=== PATIENT | male | born 1940 | race Caucasian/White ===

== ENCOUNTER 2017-05-14 09:42 | Inpatient (IN) | payer MEDICARE ==
[2017-05-14 10:03] LABS: #Eosinphils 0.1 thou/uL (0.0-0.7); #Lymphocytes 2.8 thou/uL (1.20-3.40); #Monocytes 0.7 thou/uL (0.11-0.59); #Neutrophils 7.5 thou/uL (1.40-6.50); %Basophils 0.3 % (0.0-1.0); %Eosinophils 0.9 % (0.0-10.0); %Lymphocytes 25.2 % (21.0-51.0); %Monocytes 6.5 % (0.0-10.0); %Neutrophils 67.2 % (42.0-75.0); Hemoglobin 13.8 g/dL (14.0-18.0); Mean Corpuscular HGB CONC 33.2 g/dL (32.0-36.0); Mean Corpuscular Hemoglobin 31.7 pg (27.0-31.0); Mean Corpuscular Volume 95.4 fl (80.0-94.0); Mean Platelet Volume 7.4 fL (7.4-10.4); Platelet Count 202 thou/uL (130-400); RBC Distribution Width 12.3 % (11.5-14.5); Red Blood Cell (RBC) Count 4.35 mill/uL (4.70-6.10); White Blood Cell (WBC) Count 11.2 thou/uL (4.8-10.8)
[2017-05-14 10:07] LABS: INR-International Normal Ratio 1.1; PTT 32.8 SEC (22.9-36.1); Prothrombin Time 13.8 SEC (12.0-14.7)
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
[2017-05-14 10:13] LABS: Bilirubin Negative (Negative); Blood, Urine Moderate (Negative); Clarity CLEAR (Clear); Glucose, Urine (Dipstick) >=1000 mg/dL (Negative); Leukocyte Negative (Negative); Nitrite Negative (Negative); Protein, Urine (Dipstick) Negative (Neg-Trace); Specific Gravity, Urine 1.018 (1.002-1.036); Urobilinogen 0.2 mg/dL (0.2-1.0)
[2017-05-14 10:16] LABS: Bacteria/HPF None Seen HPF (None Seen); Hyaline Casts/LPF 0-3 HYALINE CAST LPF (0-3 Hyaline); Pathc Cast-AUWi Flag 0.13 (0-2.49); RBC/HPF 0-3 HPF (0-3); Squamous Epithelial None Seen HPF (0-3); WBC/HPF None Seen HPF (0-3)
[2017-05-14 10:25] LABS: ALT (SGPT) 22 U/L (8-55); AST (SGOT) 33 U/L (5-34); Alkaline Phosphatase 85 U/L (40-150); Anion Gap 15 mmol/L (10-20); BUN (Urea Nitrogen) 30 mg/dL (8.4-25.7); Bilirubin, Total 0.3 mg/dL (0.2-1.2); Calc. Creatinine Clearance 0 mL/min (70-130); Calcium 8.5 mg/dL (7.8-10.44); Carbon Dioxide 19 mmol/L (23-31); Chloride 104 mmol/L (98-107); Estimated GFR-MDRD 33; Globulin 4.5 g/dL (2.4-3.5); Glucose 396 mg/dL (83-110); Lipase 98 U/L (8-78); Potassium 5.2 mmol/L (3.5-5.1); Protein, Total 8.5 g/dL (5.8-8.1); Sodium 133 mmol/L (136-145)
[2017-05-14 10:30] LABS: Troponin I 0.026 ng/mL (< 0.028)
[2017-05-14 10:41] LABS: CKMB 12.3 ng/mL (0-6.6)
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
[2017-05-14] MEDS ORDERED: Bacitracin Zinc 1 Packet ONE (10:55)
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
[2017-05-14] MEDS ORDERED: Insulin Regular 300 UNITS/3 ML VIAL ONE (11:25)
[2017-05-14] MEDS ORDERED: Bisacodyl 5 MG TAB PO PRN (11:43)
[2017-05-14] MEDS ORDERED: Dextrose 5% in Water 1,000 ML IV PRN (11:43)
[2017-05-14] MEDS ORDERED: Acetaminophen 650 MG Suppository PR PRN (11:43)
[2017-05-14] MEDS ORDERED: Dextrose 50% Abboject 50 ML SYRINGE SLOW IVP PRN (11:43)
[2017-05-14 12:02] LABS: Actual Bicarbonate (HCO3a) 21.8 mEq/L (22-26); Base Excess (BEa) -4.1 mEq/L (0 (+/-) 2.5); CO2 Tension 42.7 mmHg (35.0-45.0); Hematocrit-ABG 38.7 % (42.0-52.0); Hemoglobin (Hb) 12.4 g/dL (14.0-18.0); O2 Tension (PaO2) 72.7 mmHg (80.0-100.0); pH, Arterial 7.33 (7.35-7.45)
[2017-05-14 12:03] LABS: ALV-art Gradient 23.655 (0-20); Analyzer IN Cardio ER; Calcium, Ionized 1.2 mmol/L (1.12-1.30); Puncture Site RRA
[2017-05-14] MEDS ORDERED: ISOVUE-370 76%-LOCM 1 ML ONE (12:42)
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
[2017-05-14 13:15] LABS: Acetaminophen Less than 6.0 mcg/mL (10.0-30.0); Alcohol Less than 10 mg/dL (Less than 10); Salicylate Less than 8.0 mg/dL (15.0-30.0)
[2017-05-14] MEDS ORDERED: Acetaminophen 500 MG TAB ONE (13:46)
[2017-05-14 14:09] LABS: Troponin I 0.043 ng/mL (< 0.028)
[2017-05-14 16:19] VITALS: BMI 29.0
[2017-05-14] MEDS: Sodium Chloride 0.9% 1,000 ML IV SCH (16:51)
[2017-05-14 17:08] LABS: Troponin I 0.049 ng/mL (< 0.028)
[2017-05-14 17:09] LABS: Amphetamine Not Detected (NotDetected); Barbiturates Screen Not Detected (NotDetected); Benzodiazepine Screen Not Detected (NotDetected); Cocaine Metabolite Screen Not Detected (NotDetected); Medtox Control Line Valid? VALID (VALID); Medtox Reader # READER 1; Methadone Not Detected (NotDetected); Methamphetamine Not Detected (NotDetected); Opiate Screen Not Detected (NotDetected); Oxycodone Screen Not Detected (NotDetected); Phencyclidine (PCP) Not Detected (NotDetected); THC/Cannabinoid Screen Not Detected (NotDetected); Tricyclic Screen Not Detected (NotDetected)
[2017-05-14] MEDS: traMADol HCl 50 MG TAB PO PRN (19:14)
[2017-05-15] MEDS: traMADol HCl 50 MG TAB PO PRN ×2 (01:53→20:12)
[2017-05-15 05:31] LABS: #Eosinphils 0.1 thou/uL (0.0-0.7); #Lymphocytes 2.2 thou/uL (1.20-3.40); #Neutrophils 8.1 thou/uL (1.40-6.50); %Basophils 0.1 % (0.0-1.0); %Eosinophils 0.5 % (0.0-10.0); %Lymphocytes 19.5 % (21.0-51.0); %Monocytes 8.7 % (0.0-10.0); %Neutrophils 71.3 % (42.0-75.0); Hemoglobin 11.8 g/dL (14.0-18.0); Mean Corpuscular HGB CONC 33.6 g/dL (32.0-36.0); Mean Corpuscular Hemoglobin 31.9 pg (27.0-31.0); Mean Corpuscular Volume 94.9 fl (80.0-94.0); Mean Platelet Volume 7.3 fL (7.4-10.4); Platelet Count 181 thou/uL (130-400); RBC Distribution Width 12.3 % (11.5-14.5); Red Blood Cell (RBC) Count 3.72 mill/uL (4.70-6.10); White Blood Cell (WBC) Count 11.4 thou/uL (4.8-10.8)
[2017-05-15 05:54] LABS: Anion Gap 12 mmol/L (10-20); BUN (Urea Nitrogen) 21 mg/dL (8.4-25.7); CK (CPK) 1265 U/L (30-200); Calc. Creatinine Clearance 58 mL/min (70-130); Calcium 8.1 mg/dL (7.8-10.44); Carbon Dioxide 20 mmol/L (23-31); Chloride 109 mmol/L (98-107); Estimated GFR-MDRD 48; Glucose 210 mg/dL (83-110); Potassium 4.3 mmol/L (3.5-5.1); Sodium 137 mmol/L (136-145)
[2017-05-15] MEDS: Sodium Chloride 0.9% 1,000 ML IV SCH ×2 (05:56→16:39)
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
[2017-05-15] MEDS: HumaLOG 300 UNITS/3 ML VIAL SC PRN ×2 (09:19→18:08)
--- NOTE | 2017-05-15 13:16 | PDOC.PN ---
- Subjective Encounter Start Date: 05/15/17 Encounter Start Time: 07:00 Pt seen for followup re: syncope. Denies chest pain. R shoulder pain better. - Objective Resuscitation Status: Resuscitation Status FULL:Full Resuscitation MAR Reviewed: Yes Vital Signs & Weight: Vital Signs (12 hours) Temp Pulse Resp BP BP Pulse Ox 05/15/17 11:18 97.4 F L 60 16 150/67 H 97 05/15/17 08:45 97.2 F L 77 18 165/74 H 97 05/15/17 04:00 98.5 F 78 18 176/81 H 94 L Weight Weight 206 lb 9.6 oz I&O: 05/14/17 05/15/17 05/16/17 06:59 06:59 06:59 Intake Total 898 Output Total 850 Balance 48 Result Diagrams: 05/15/17 05:07 05/15/17 05:07 Additional Labs: Accuchecks 05/15/17 05/15/17 05/14/17 11:38 05:59 20:10 POC Glucose 170 H 206 H 142 H 05/14/17 05/14/17 17:08 14:53 POC Glucose 114 H 110 EKG Reviewed by me: Yes (Tele: NSR) Phys Exam - Physical Examination Constitutional: NAD L eyelid swelling Neck: no nodes, no JVD, supple, full ROM Respiratory: no wheezing, no rales, no rhonchi, clear to auscultation bilateral Cardiovascular: RRR, no rub Gastrointestinal: soft, non-tender, no distention, positive bowel sounds Musculoskeletal: pulses present Neurological: moves all 4 limbs Psychiatric: normal affect, A&O x 3 Skin: no rash Dx/Plan (1) Syncope Code(s): R55 - SYNCOPE AND COLLAPSE Status: Acute (2) Rhabdomyolysis Code(s): M62.82 - RHABDOMYOLYSIS Status: Acute (3) JUD (acute kidney injury) Code(s): N17.9 - ACUTE KIDNEY FAILURE, UNSPECIFIED Status: Acute (4) BPH (benign prostatic hyperplasia) Code(s): N40.0 - BENIGN PROSTATIC HYPERPLASIA WITHOUT LOWER URINRY TRACT SYMP Status: Chronic (5) DM2 (diabetes mellitus, type 2) Status: Chronic (6) HTN (hypertension) Code(s): I10 - ESSENTIAL (PRIMARY) HYPERTENSION Status: Chronic - Plan PT/OT, out of bed/ambulate, DVT proph w/SCDs * . Creatinine improving, CK worse. Continue IV fluids. Await 2D echo, cardiology consult. Continue home medications for BPH. Continue accuchecks, insulin sliding scale. Review of Systems - Review of Systems Constitutional: negative: fever, chills, sweats, weakness, malaise Respiratory: negative: Cough, Dry, Shortness of Breath, Hemoptysis, SOB with Excertion, Pleuritic Pain, Sputum, Wheezing Cardiovascular: negative: chest pain, palpitations, orthopnea, paroxysmal nocturnal dyspnea, edema, light headedness Gastrointestinal: negative: Nausea, Vomiting, Abdominal Pain, Diarrhea, Constipation, Melena, Hematochezia Genitourinary: negative: Dysuria, Frequency, Incontinence, Hematuria, Retention - Medications/Allergies Allergies/Adverse Reactions: Allergies Allergy/AdvReac Type Severity Reaction Status Date / Time No Known Drug Allergies Allergy Verified 05/14/17 11:43 Medications: Current Medications Acetaminophen (Tylenol) 650 mg PO Q4H PRN PRN Reason: Headache/Fever or Pain Acetaminophen (Tylenol) 650 mg VT Q4H PRN PRN Reason: Headache/Fever or Pain Bisacodyl (Dulcolax) 10 mg PO DAILYPRN PRN PRN Reason: Constipation Dextrose/Water (Dextrose 50%) 25 gm SLOW IVP PRN PRN PRN Reason: Hypoglycemia Finasteride (Proscar) 5 mg PO DAILY [facility] Glucagon (Glucagon) 1 mg IM PRN PRN PRN Reason: Hypoglycemia Hydralazine HCl (Apresoline) 10 mg SLOW IVP Q6H PRN PRN Reason: SBP Greater Than 170 Dextrose/Water (D5w) 1,000 mls @ 0 mls/hr IV .Q0M PRN; As Directed PRN Reason: Hypoglycemia Sodium Chloride (Normal Saline 0.9%) 1,000 mls @ 75 mls/hr IV .[id number] [facility] Last Admin: 05/15/17 05:56 Dose: 1,000 mls Insulin Human Isoph/Insulin Regular (Humulin 70/30) 46 units SC DAILY [facility] Insulin Human Lispro (Humalog) 0 units SC .MILD SLIDING SCALE PRN PRN Reason: Mild Correctional Scale Last Admin: 05/15/17 09:19 Dose: 3 units Lisinopril (Zestril) 5 mg PO DAILY [facility] Pravastatin Sodium (Pravachol) 40 mg PO HS [facility] Spironolactone (Aldactone) 25 mg PO DAILY [facility] Tamsulosin HCl (Flomax) 0.4 mg PO DAILY [facility] Tramadol HCl (Ultram) 50 mg PO Q6H PRN PRN Reason: Pain Last Admin: 05/15/17 01:53 Dose: 50 mg
[2017-05-15] MEDS ORDERED: Lidocaine 1% w/Epinephrine 1:200K 30 ML VIAL ONE (13:43)
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
--- NOTE | 2017-05-15 16:30 | CCL ---
PROCEDURE NOTE: Date: 05/15/17 PROCEDURE PERFORMED: Insertable personal care home administrator implant. IMPLANTING PHYSICIAN: Guy Saravia M.D. INDICATION FOR DEVICE: Syncope. PROCEDURE: Insertion of permanent personal care home administrator, model MVP LINQ 11, serial #[id number]. COMPLICATIONS: None. DESCRIPTION OF PROCEDURE: The patient was taken to the cardiac laborer egg producing farm, prepped and draped in the usual sterile fashion. Lidoc verena was utilized for local anesthesia. An incision was made at the fourth intercostal space in the l eft pectoral region with skin puncture tool. The insertable personal care home administrator was inserted through the puncture site with the LINQ insertion tool. Dermabond was then applied to side in the usual sterile f ashion. RECOMMENDATIONS: 1. Continue monitoring. 2. Follow up in the office in 1 week for wound check.
[2017-05-15] MEDS: Atorvastatin Calcium 10 MG TAB PO SCH (20:12)
[2017-05-15] MEDS ORDERED: Pravastatin Sodium 40 MG TAB PO SCH (21:00)
[2017-05-16] MEDS: traMADol HCl 50 MG TAB PO PRN ×3 (02:09→17:29)
[2017-05-16] MEDS: hydrALAZINE 20 MG/ML VIAL SLOW IVP PRN (04:20)
[2017-05-16 05:07] LABS: #Eosinphils 0.1 thou/uL (0.0-0.7); #Monocytes 0.9 thou/uL (0.11-0.59); #Neutrophils 8.3 thou/uL (1.40-6.50); %Basophils 0.2 % (0.0-1.0); %Eosinophils 0.7 % (0.0-10.0); %Lymphocytes 17.7 % (21.0-51.0); %Monocytes 7.6 % (0.0-10.0); %Neutrophils 73.8 % (42.0-75.0); Hemoglobin 11.8 g/dL (14.0-18.0); Mean Corpuscular Hemoglobin 31.6 pg (27.0-31.0); Mean Corpuscular Volume 95.6 fl (80.0-94.0); Mean Platelet Volume 7.4 fL (7.4-10.4); Platelet Count 180 thou/uL (130-400); RBC Distribution Width 12.4 % (11.5-14.5); Red Blood Cell (RBC) Count 3.74 mill/uL (4.70-6.10); White Blood Cell (WBC) Count 11.3 thou/uL (4.8-10.8)
[2017-05-16 05:41] LABS: Anion Gap 11 mmol/L (10-20); BUN (Urea Nitrogen) 19 mg/dL (8.4-25.7); CK (CPK) 768 U/L (30-200); Calc. Creatinine Clearance 54 mL/min (70-130); Calcium 8.1 mg/dL (7.8-10.44); Carbon Dioxide 22 mmol/L (23-31); Chloride 109 mmol/L (98-107); Estimated GFR-MDRD 43; Glucose 241 mg/dL (83-110); Potassium 4.8 mmol/L (3.5-5.1); Sodium 137 mmol/L (136-145)
[2017-05-16] MEDS: Spironolactone 25 MG TAB PO SCH (08:54)
[2017-05-16] MEDS: Tamsulosin HCl 0.4 MG CAP PO SCH (08:54)
[2017-05-16] MEDS: Lisinopril 5 MG TAB PO SCH (08:54)
[2017-05-16] MEDS: Finasteride 5 MG TAB PO SCH (08:54)
[2017-05-16] MEDS ORDERED: Insulin NPH/Reg Insulin Hm 300 UNITS/3 ML VIAL SC SCH (09:00)
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
--- NOTE | 2017-05-16 13:21 | PDOC.PN ---
- Subjective Encounter Start Date: 05/16/17 Encounter Start Time: 07:40 Pt seen for followup re; syncope. No chest pain or shortness of breath. - Objective Resuscitation Status: Resuscitation Status FULL:Full Resuscitation MAR Reviewed: Yes Vital Signs & Weight: Vital Signs (12 hours) Temp Pulse Resp BP BP Pulse Ox 05/16/17 11:58 98.2 F 82 20 178/74 H 94 L 05/16/17 08:54 80 05/16/17 08:50 97.4 F L 80 18 95 05/16/17 08:49 97.4 F L 80 18 182/81 H 95 05/16/17 05:32 95 05/16/17 04:20 77 185/82 H 05/16/17 04:00 97.7 F 77 18 185/82 H 95 Weight Weight 209 lb 3.2 oz I&O: 05/15/17 05/16/17 05/17/17 06:59 06:59 06:59 Intake Total 898 1584 Output Total 850 1700 450 Balance 48 -116 -450 Result Diagrams: 05/17/17 05:39 05/17/17 05:39 Additional Labs: Accuchecks 05/16/17 05/16/17 05/15/17 10:55 05:58 20:12 POC Glucose 285 H 266 H 191 H 05/15/17 05/15/17 17:34 13:49 POC Glucose 209 H 328 H EKG Reviewed by me: Yes (Tele: NSR) Phys Exam - Physical Examination Constitutional: NAD L orbital swellign improved, pt's vision preserved. Neck: no JVD Respiratory: clear to auscultation bilateral Cardiovascular: RRR Gastrointestinal: soft Musculoskeletal: pulses present Neurological: moves all 4 limbs Psychiatric: normal affect Skin: no rash Dx/Plan (1) Syncope Code(s): R55 - SYNCOPE AND COLLAPSE Status: Acute (2) Rhabdomyolysis Code(s): M62.82 - RHABDOMYOLYSIS Status: Acute (3) JUD (acute kidney injury) Code(s): N17.9 - ACUTE KIDNEY FAILURE, UNSPECIFIED Status: Acute (4) BPH (benign prostatic hyperplasia) Code(s): N40.0 - BENIGN PROSTATIC HYPERPLASIA WITHOUT LOWER URINRY TRACT SYMP Status: Chronic (5) DM2 (diabetes mellitus, type 2) Status: Chronic (6) HTN (hypertension) Code(s): I10 - ESSENTIAL (PRIMARY) HYPERTENSION Status: Chronic - Plan * . Creatinine slightly worse today, continue IV fluids. CK level improved. Pt going for stress test today. Advised pt not to drive or use heavy machinery. Ambulate patient. Review of Systems - Review of Systems Respiratory: negative: Cough, Dry, Shortness of Breath, Hemoptysis, SOB with Excertion, Pleuritic Pain, Sputum, Wheezing Cardiovascular: negative: chest pain, palpitations, orthopnea, paroxysmal nocturnal dyspnea, edema, light headedness - Medications/Allergies Allergies/Adverse Reactions: Allergies Allergy/AdvReac Type Severity Reaction Status Date / Time No Known Drug Allergies Allergy Verified 05/14/17 11:43 Medications: Current Medications Acetaminophen (Tylenol) 650 mg PO Q4H PRN PRN Reason: Headache/Fever or Pain Acetaminophen (Tylenol) [address] Q4H PRN PRN Reason: Headache/Fever or Pain Atorvastatin Calcium (Lipitor) 10 mg PO HS [facility] Last Admin: 05/15/17 20:12 Dose: 10 mg Bisacodyl (Dulcolax) 10 mg PO DAILYPRN PRN PRN Reason: Constipation Dextrose/Water (Dextrose 50%) 25 gm SLOW IVP PRN PRN PRN Reason: Hypoglycemia Finasteride (Proscar) 5 mg PO DAILY [facility] Last Admin: 05/16/17 08:54 Dose: 5 mg Glucagon (Glucagon) 1 mg IM PRN PRN PRN Reason: Hypoglycemia Hydralazine HCl (Apresoline) 10 mg SLOW IVP Q6H PRN PRN Reason: SBP Greater Than 170 Last Admin: 05/16/17 04:20 Dose: 10 mg Dextrose/Water (D5w) 1,000 mls @ 0 mls/hr IV .Q0M PRN; As Directed PRN Reason: Hypoglycemia Insulin Human Lispro (Humalog) 0 units SC .MILD SLIDING SCALE PRN PRN Reason: Mild Correctional Scale Last Admin: 05/15/17 18:08 Dose: 3 units Lisinopril (Zestril) 5 mg PO DAILY [facility] Last Admin: 05/16/17 08:54 Dose: 5 mg Sodium Chloride (Flush - Normal Saline) 10 ml IVF Q12HR [facility] Last Admin: 05/16/17 08:56 Dose: 10 ml Sodium Chloride (Flush - Normal Saline) 10 ml IVF PRN PRN PRN Reason: Saline Flush Spironolactone (Aldactone) 25 mg PO DAILY [facility] Last Admin: 05/16/17 08:54 Dose: 25 mg Tamsulosin HCl (Flomax) 0.4 mg PO DAILY [facility] Last Admin: 05/16/17 08:54 Dose: 0.4 mg Tramadol HCl (Ultram) 50 mg PO Q6H PRN PRN Reason: Pain Last Admin: 05/16/17 09:03 Dose: 50 mg
[2017-05-16] MEDS ORDERED: Regadenoson 0.4 MG/5 ML SYRINGE ONE (13:46)
[2017-05-16] MEDS: HumaLOG 300 UNITS/3 ML VIAL SC PRN (18:27)
--- NOTE | 2017-05-16 20:04 | NM ---
NUCLEAR MEDICINE CARDIAC PERFUSION EXAMINATION 05/16/17 HISTORY: 77-year-old male with syncope. History of prior cardiac catheterization, hypertension, diabetes, and dyslipidemia. TECHNIQUE: A single day nuclear medicine cardiac perfusion examination was performed. The rest images were obtai claudette using 9.2 millicuries technetium 99m Sestamibi. Stress images were obtained using 30 millicuries of technetium 99m Sestamibi and Lexiscan. FINDINGS: There is a large fixed perfusion defect of the lateral wall. No reversible perfusion defects are seen . Gated images show lateral hypokinesis with an ejection fracture of 47%. EDV is 147 mL. LHR is 0.6. TID is 1.0. IMPRESSION: 1. No evidence of ischemia. 2. 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 3. Lateral hypokinesis with an ejection fraction of 47%. POS: OBDULIO
[2017-05-16] MEDS: Atorvastatin Calcium 10 MG TAB PO SCH (20:39)
[2017-05-17] MEDS: traMADol HCl 50 MG TAB PO PRN ×4 (00:01→21:09)
[2017-05-17 06:21] LABS: #Lymphocytes 1.5 thou/uL (1.20-3.40); #Monocytes 0.9 thou/uL (0.11-0.59); #Neutrophils 9.3 thou/uL (1.40-6.50); %Basophils 0.1 % (0.0-1.0); %Eosinophils 0.3 % (0.0-10.0); %Lymphocytes 13.1 % (21.0-51.0); %Monocytes 7.6 % (0.0-10.0); %Neutrophils 78.9 % (42.0-75.0); Hemoglobin 12.2 g/dL (14.0-18.0); Mean Corpuscular HGB CONC 33.6 g/dL (32.0-36.0); Mean Corpuscular Volume 95.1 fl (80.0-94.0); Mean Platelet Volume 7.6 fL (7.4-10.4); Platelet Count 166 thou/uL (130-400); RBC Distribution Width 12.2 % (11.5-14.5); Red Blood Cell (RBC) Count 3.81 mill/uL (4.70-6.10); White Blood Cell (WBC) Count 11.7 thou/uL (4.8-10.8)
[2017-05-17 06:41] LABS: Anion Gap 14 mmol/L (10-20); BUN (Urea Nitrogen) 21 mg/dL (8.4-25.7); Calc. Creatinine Clearance 57 mL/min (70-130); Calcium 8.6 mg/dL (7.8-10.44); Carbon Dioxide 17 mmol/L (23-31); Chloride 108 mmol/L (98-107); Estimated GFR-MDRD 48; Glucose 250 mg/dL (83-110); Potassium 4.5 mmol/L (3.5-5.1); Sodium 134 mmol/L (136-145)
[2017-05-17] MEDS: Tamsulosin HCl 0.4 MG CAP PO SCH (08:39)
[2017-05-17] MEDS: Spironolactone 25 MG TAB PO SCH (08:39)
[2017-05-17] MEDS: Lisinopril 5 MG TAB PO SCH (08:39)
[2017-05-17] MEDS: Finasteride 5 MG TAB PO SCH (08:39)
[2017-05-17] MEDS: HumaLOG 300 UNITS/3 ML VIAL SC PRN ×2 (08:41→12:10)
[2017-05-17] MEDS ORDERED: Communication Order-Pharmacy FS SCH (09:45)
[2017-05-17] MEDS: Insulin NPH/Reg Insulin Hm 300 UNITS/3 ML VIAL SC SCH (12:11)
--- NOTE | 2017-05-17 16:12 | PDOC.PN ---
- Subjective Encounter Start Date: 05/17/17 Encounter Start Time: 08:00 Pt seen for followup re: syncope. No recurrence of syncope. No chest pain or shortness of breath. - Objective Resuscitation Status: Resuscitation Status FULL:Full Resuscitation MAR Reviewed: Yes Vital Signs & Weight: Vital Signs (12 hours) Temp Pulse Resp BP BP Pulse Ox 05/17/17 11:37 97.9 F 85 18 145/67 H 93 L 05/17/17 08:39 76 05/17/17 08:30 98 F 84 18 133/61 94 L Weight Weight 202 lb 14.4 oz I&O: 05/16/17 05/17/17 05/18/17 06:59 06:59 06:59 Intake Total 1584 480 480 Output Total 1700 1075 Balance -116 -595 480 Result Diagrams: 05/17/17 05:39 05/17/17 05:39 Additional Labs: Accuchecks 05/17/17 05/16/17 05/16/17 05:20 20:22 16:09 POC Glucose 285 H 280 H 256 H EKG Reviewed by me: Yes (Tele: NSR) Phys Exam - Physical Examination Constitutional: NAD HEENT: moist MMs Neck: supple Respiratory: clear to auscultation bilateral Cardiovascular: RRR Gastrointestinal: soft Neurological: moves all 4 limbs Psychiatric: normal affect Deviation from normal: Orbital bruise improving Dx/Plan (1) Syncope Code(s): R55 - SYNCOPE AND COLLAPSE Status: Acute (2) Rhabdomyolysis Code(s): M62.82 - RHABDOMYOLYSIS Status: Acute (3) JUD (acute kidney injury) Code(s): N17.9 - ACUTE KIDNEY FAILURE, UNSPECIFIED Status: Acute (4) BPH (benign prostatic hyperplasia) Code(s): N40.0 - BENIGN PROSTATIC HYPERPLASIA WITHOUT LOWER URINRY TRACT SYMP Status: Chronic (5) DM2 (diabetes mellitus, type 2) Status: Chronic (6) HTN (hypertension) Code(s): I10 - ESSENTIAL (PRIMARY) HYPERTENSION Status: Chronic - Plan * . Discussed with cardiology service, plan for cath on Friday noted. Review of Systems - Review of Systems Respiratory: negative: Cough, Dry, Shortness of Breath, Hemoptysis, SOB with Excertion, Pleuritic Pain, Sputum, Wheezing Cardiovascular: negative: chest pain, palpitations, orthopnea, paroxysmal nocturnal dyspnea, edema, light headedness - Medications/Allergies Allergies/Adverse Reactions: Allergies Allergy/AdvReac Type Severity Reaction Status Date / Time No Known Drug Allergies Allergy Verified 05/14/17 11:43 Medications: Current Medications Acetaminophen (Tylenol) 650 mg PO Q4H PRN PRN Reason: Headache/Fever or Pain Acetaminophen (Tylenol) 650 mg [place] Q4H PRN PRN Reason: Headache/Fever or Pain Atorvastatin Calcium (Lipitor) 10 mg PO HS [facility] Last Admin: 05/16/17 20:39 Dose: 10 mg Bisacodyl (Dulcolax) 10 mg PO DAILYPRN PRN PRN Reason: Constipation Dextrose/Water (Dextrose 50%) 25 gm SLOW IVP PRN PRN PRN Reason: Hypoglycemia Finasteride (Proscar) 5 mg PO DAILY [facility] Last Admin: 05/17/17 08:39 Dose: 5 mg Glucagon (Glucagon) 1 mg IM PRN PRN PRN Reason: Hypoglycemia Hydralazine HCl (Apresoline) 10 mg SLOW IVP Q6H PRN PRN Reason: SBP Greater Than 170 Last Admin: 05/16/17 04:20 Dose: 10 mg Dextrose/Water (D5w) 1,000 mls @ 0 mls/hr IV .Q0M PRN; As Directed PRN Reason: Hypoglycemia Sodium Chloride (Normal Saline 0.9%) 1,000 mls @ 75 mls/hr IV .[id number] [facility] Insulin Human Isoph/Insulin Regular (Humulin 70/30) 20 units SC DAILY [facility] Last Admin: 05/17/17 12:11 Dose: 20 unit Insulin Human Lispro (Humalog) 0 units SC .MILD SLIDING SCALE PRN PRN Reason: Mild Correctional Scale Last Admin: 05/17/17 12:10 Dose: 4 units Lisinopril (Zestril) 5 mg PO DAILY [facility] Last Admin: 05/17/17 08:39 Dose: 5 mg Miscellaneous Information (Communication Order-Pharmacy) 0 each FS ONE [facility] Stop: 05/19/17 23:59 Sodium Chloride (Flush - Normal Saline) 10 ml IVF Q12HR [facility] Last Admin: 05/17/17 08:40 Dose: 10 ml Sodium Chloride (Flush - Normal Saline) 10 ml IVF PRN PRN PRN Reason: Saline Flush Spironolactone (Aldactone) 25 mg PO DAILY [facility] Last Admin: 05/17/17 08:39 Dose: 25 mg Tamsulosin HCl (Flomax) 0.4 mg PO DAILY [facility] Last Admin: 05/17/17 08:39 Dose: 0.4 mg Tramadol HCl (Ultram) 50 mg PO Q6H PRN PRN Reason: Pain Last Admin: 05/17/17 15:00 Dose: 50 mg
[2017-05-17] MEDS: Atorvastatin Calcium 10 MG TAB PO SCH (21:09)
[2017-05-18] MEDS: traMADol HCl 50 MG TAB PO PRN ×4 (03:01→22:30)
[2017-05-18 06:53] LABS: ALT (SGPT) 20 U/L (8-55); AST (SGOT) 22 U/L (5-34); Albumin 3.5 g/dL (3.4-4.8); Alkaline Phosphatase 76 U/L (40-150); Anion Gap 18 mmol/L (10-20); BUN (Urea Nitrogen) 33 mg/dL (8.4-25.7); Bilirubin, Total 1.1 mg/dL (0.2-1.2); Calc. Creatinine Clearance 28 mL/min (70-130); Calcium 8.8 mg/dL (7.8-10.44); Carbon Dioxide 16 mmol/L (23-31); Chloride 107 mmol/L (98-107); Estimated GFR-MDRD 21; Globulin 3.8 g/dL (2.4-3.5); Glucose 190 mg/dL (83-110); Protein, Total 7.3 g/dL (5.8-8.1); Sodium 135 mmol/L (136-145)
[2017-05-18] MEDS: Lisinopril 5 MG TAB PO SCH (08:59)
[2017-05-18] MEDS: Spironolactone 25 MG TAB PO SCH (09:00)
[2017-05-18] MEDS: Tamsulosin HCl 0.4 MG CAP PO SCH (09:18)
[2017-05-18] MEDS: Finasteride 5 MG TAB PO SCH (09:21)
[2017-05-18] MEDS: HumaLOG 300 UNITS/3 ML VIAL SC PRN ×2 (09:22→12:30)
[2017-05-18] MEDS: Insulin NPH/Reg Insulin Hm 300 UNITS/3 ML VIAL SC SCH (09:25)
[2017-05-18] MEDS ORDERED: Sodium Chloride 0.9% 1,000 ML IV SCH ×2 (09:45→10:45)
--- NOTE | 2017-05-18 10:21 | PDOC.PN ---
- Subjective Encounter Start Date: 05/18/17 Encounter Start Time: 08:00 Pt seen for followup re: JUD. No chest pain, shortness of breath, fevers or chills. - Objective Resuscitation Status: Resuscitation Status FULL:Full Resuscitation MAR Reviewed: Yes Vital Signs & Weight: Vital Signs (12 hours) Temp Pulse Resp BP BP BP Pulse Ox 05/18/17 08:59 84 05/18/17 08:00 97.7 F 85 18 160/66 H 95 05/18/17 04:40 92 L 05/18/17 03:55 98.1 F 84 18 113/54 L 92 L 05/18/17 00:58 93 L 05/18/17 00:00 97.7 F 79 14 142/65 H 93 L Weight Weight 203 lb 3.2 oz I&O: 05/17/17 05/18/17 05/19/17 06:59 06:59 06:59 Intake Total 480 720 Output Total 1075 100 Balance -595 620 Result Diagrams: 05/17/17 05:39 05/18/17 04:57 Additional Labs: Accuchecks 05/18/17 05/17/17 05/17/17 05:43 19:44 16:54 POC Glucose 182 H 112 H 139 H 05/17/17 11:36 POC Glucose 295 H EKG Reviewed by me: Yes (Tele: NSR) Phys Exam - Physical Examination Constitutional: NAD HEENT: moist MMs Neck: supple Respiratory: clear to auscultation bilateral Cardiovascular: RRR Gastrointestinal: soft Neurological: moves all 4 limbs Psychiatric: normal affect Dx/Plan (1) JUD (acute kidney injury) Code(s): N17.9 - ACUTE KIDNEY FAILURE, UNSPECIFIED Status: Acute (2) Syncope Code(s): R55 - SYNCOPE AND COLLAPSE Status: Acute (3) Rhabdomyolysis Code(s): M62.82 - RHABDOMYOLYSIS Status: Acute (4) BPH (benign prostatic hyperplasia) Code(s): N40.0 - BENIGN PROSTATIC HYPERPLASIA WITHOUT LOWER URINRY TRACT SYMP Status: Chronic (5) DM2 (diabetes mellitus, type 2) Status: Chronic (6) HTN (hypertension) Code(s): I10 - ESSENTIAL (PRIMARY) HYPERTENSION Status: Chronic - Plan * . JUD ? secondary to prerenal vs renal vs postrenal causes (CK was trending down) . Pt had a drop in blood pressure yesterday. Hold nephrotoxic medications. Check renal US. Hydrate patient, recheck Chem-7. Plan for cath tomorrow. Review of Systems - Review of Systems Respiratory: negative: Cough, Dry, Shortness of Breath, Hemoptysis, SOB with Excertion, Pleuritic Pain, Sputum, Wheezing Cardiovascular: negative: chest pain, palpitations, orthopnea, paroxysmal nocturnal dyspnea, edema, light headedness - Medications/Allergies Allergies/Adverse Reactions: Allergies Allergy/AdvReac Type Severity Reaction Status Date / Time No Known Drug Allergies Allergy Verified 05/14/17 11:43 Medications: Current Medications Acetaminophen (Tylenol) 650 mg PO Q4H PRN PRN Reason: Headache/Fever or Pain Acetaminophen (Tylenol) 650 mg [place] Q4H PRN PRN Reason: Headache/Fever or Pain Atorvastatin Calcium (Lipitor) 10 mg PO [facility] Last Admin: 05/17/17 21:09 Dose: 10 mg Bisacodyl (Dulcolax) 10 mg PO DAILYPRN PRN PRN Reason: Constipation Dextrose/Water (Dextrose 50%) 25 gm SLOW IVP PRN PRN PRN Reason: Hypoglycemia Finasteride (Proscar) 5 mg PO DAILY [facility] Last Admin: 05/18/17 09:21 Dose: 5 mg Glucagon (Glucagon) 1 mg IM PRN PRN PRN Reason: Hypoglycemia Hydralazine HCl (Apresoline) 10 mg SLOW IVP Q6H PRN PRN Reason: SBP Greater Than 170 Last Admin: 05/16/17 04:20 Dose: 10 mg Dextrose/Water (D5w) 1,000 mls @ 0 mls/hr IV .Q0M PRN; As Directed PRN Reason: Hypoglycemia Sodium Chloride (Normal Saline 0.9%) 1,000 mls @ 75 mls/hr IV .[id number] [facility] Insulin Human Isoph/Insulin Regular (Humulin 70/30) 20 units SC DAILY [facility] Last Admin: 05/18/17 09:25 Dose: 20 unit Insulin Human Lispro (Humalog) 0 units SC .MILD SLIDING SCALE PRN PRN Reason: Mild Correctional Scale Last Admin: 05/18/17 09:22 Dose: 2 units Lisinopril (Zestril) 5 mg PO DAILY [facility] Last Admin: 05/18/17 08:59 Dose: Not Given Miscellaneous Information (Communication Order-Pharmacy) 0 each FS ONE [facility] Stop: 05/19/17 23:59 Sodium Chloride (Flush - Normal Saline) 10 ml IVF Q12HR [facility] Last Admin: 05/18/17 09:26 Dose: 10 ml Sodium Chloride (Flush - Normal Saline) 10 ml IVF PRN PRN PRN Reason: Saline Flush Spironolactone (Aldactone) 25 mg PO DAILY [facility] Last Admin: 05/18/17 09:00 Dose: Not Given Tamsulosin HCl (Flomax) 0.4 mg PO DAILY [facility] Last Admin: 05/18/17 09:18 Dose: 0.4 mg Tramadol HCl (Ultram) 50 mg PO Q6H PRN PRN Reason: Pain Last Admin: 05/18/17 09:18 Dose: 50 mg
[2017-05-18] MEDS: Sodium Chloride 0.9% 1,000 ML IV SCH ×2 (11:19→22:33)
--- NOTE | 2017-05-18 13:23 | ULT ---
RENAL SONOGRAM: History Renal insufficiency. FINDINGS: The right kidney is 11.2 cm in length and the left 11.3 cm. Each has a normal sonographic appearance without evidence of mass, stone, or hydronephrosis. The urinary bladder has a normal appearance. IMPRESSION: No evidence of urinary tract obstruction. POS: OBDULIO
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
[2017-05-18 15:47] LABS: Anion Gap 16 mmol/L (10-20); BUN (Urea Nitrogen) 29 mg/dL (8.4-25.7); Calc. Creatinine Clearance 48 mL/min (70-130); Calcium 8.3 mg/dL (7.8-10.44); Carbon Dioxide 15 mmol/L (23-31); Chloride 110 mmol/L (98-107); Estimated GFR-MDRD 39; Glucose 135 mg/dL (83-110); Potassium 4.7 mmol/L (3.5-5.1); Sodium 136 mmol/L (136-145)
[2017-05-18 16:04] LABS: Potassium, Urine 28.1 mmol/L
[2017-05-18] MEDS: Atorvastatin Calcium 10 MG TAB PO SCH (21:04)
[2017-05-19 05:09] LABS: #Eosinphils 0.1 thou/uL (0.0-0.7); #Lymphocytes 1.8 thou/uL (1.20-3.40); #Monocytes 0.8 thou/uL (0.11-0.59); #Neutrophils 7.1 thou/uL (1.40-6.50); %Basophils 0.1 % (0.0-1.0); %Eosinophils 0.6 % (0.0-10.0); %Lymphocytes 18.6 % (21.0-51.0); %Monocytes 8.3 % (0.0-10.0); %Neutrophils 72.4 % (42.0-75.0); Hemoglobin 11.4 g/dL (14.0-18.0); Mean Corpuscular HGB CONC 33.7 g/dL (32.0-36.0); Mean Corpuscular Hemoglobin 32.5 pg (27.0-31.0); Mean Corpuscular Volume 96.4 fl (80.0-94.0); Mean Platelet Volume 7.3 fL (7.4-10.4); Platelet Count 191 thou/uL (130-400); RBC Distribution Width 12.4 % (11.5-14.5); Red Blood Cell (RBC) Count 3.51 mill/uL (4.70-6.10); White Blood Cell (WBC) Count 9.9 thou/uL (4.8-10.8)
[2017-05-19 05:29] LABS: Anion Gap 13 mmol/L (10-20); BUN (Urea Nitrogen) 25 mg/dL (8.4-25.7); Calc. Creatinine Clearance 55 mL/min (70-130); Calcium 8.7 mg/dL (7.8-10.44); Carbon Dioxide 20 mmol/L (23-31); Chloride 108 mmol/L (98-107); Estimated GFR-MDRD 46; Glucose 168 mg/dL (83-110); Potassium 4.7 mmol/L (3.5-5.1); Sodium 136 mmol/L (136-145)
[2017-05-19] MEDS: traMADol HCl 50 MG TAB PO PRN ×3 (06:28→20:33)
[2017-05-19] MEDS: Sodium Chloride 0.9% 1,000 ML IV SCH ×2 (08:25→22:22)
[2017-05-19] MEDS: Finasteride 5 MG TAB PO SCH (08:26)
[2017-05-19] MEDS: Tamsulosin HCl 0.4 MG CAP PO SCH (08:26)
[2017-05-19] MEDS: Insulin NPH/Reg Insulin Hm 300 UNITS/3 ML VIAL SC SCH (08:30)
[2017-05-19] MEDS: Acetaminophen 325 MG TAB PO PRN (08:40)
[2017-05-19] MEDS ORDERED: Iopamidol 370 76% 100 ML VIAL ONE (11:51)
[2017-05-19] MEDS ORDERED: Acetaminophen/Codeine 30-300mg Tablet PO PRN (13:24)
[2017-05-19] MEDS ORDERED: Nitroglycerin 0.4 MG TAB (25 Tab Bottle) SL PRN (13:24)
[2017-05-19] MEDS ORDERED: Sodium Chloride 0.9% 200 ML IV SCH (13:30)
--- NOTE | 2017-05-19 16:38 | PDOC.PN ---
- Subjective Encounter Start Date: 05/19/17 Encounter Start Time: 08:40 Pt seen for followup re: syncope. No chest pain or shortness of breath. No fevers or chills. - Objective Resuscitation Status: Resuscitation Status FULL:Full Resuscitation MAR Reviewed: Yes Vital Signs & Weight: Vital Signs (12 hours) Temp Pulse Resp BP BP BP Pulse Ox 05/19/17 12:15 142/66 H 05/19/17 08:15 97 F L 85 18 191/78 H 167/71 H 144/65 H 94 L Weight Weight 203 lb 3.2 oz I&O: 05/18/17 05/19/17 05/20/17 06:59 06:59 06:59 Intake Total 720 3455 Output Total 100 1175 Balance 620 2280 Result Diagrams: 05/19/17 04:19 05/19/17 04:19 Additional Labs: Accuchecks 05/19/17 05/19/17 05/18/17 11:15 05:45 20:14 POC Glucose 183 H 164 H 124 H 05/18/17 17:40 POC Glucose 194 H EKG Reviewed by me: Yes (Tele: NSR) Phys Exam - Physical Examination Constitutional: NAD HEENT: moist MMs Neck: supple Respiratory: clear to auscultation bilateral Cardiovascular: RRR Gastrointestinal: soft Neurological: moves all 4 limbs Psychiatric: normal affect Skin: no rash Dx/Plan (1) Syncope Code(s): R55 - SYNCOPE AND COLLAPSE Status: Acute (2) JUD (acute kidney injury) Code(s): N17.9 - ACUTE KIDNEY FAILURE, UNSPECIFIED Status: Acute (3) Rhabdomyolysis Code(s): M62.82 - RHABDOMYOLYSIS Status: Acute (4) BPH (benign prostatic hyperplasia) Code(s): N40.0 - BENIGN PROSTATIC HYPERPLASIA WITHOUT LOWER URINRY TRACT SYMP Status: Chronic (5) DM2 (diabetes mellitus, type 2) Status: Chronic (6) HTN (hypertension) Code(s): I10 - ESSENTIAL (PRIMARY) HYPERTENSION Status: Chronic - Plan * . JUD improved. For cath. Likely home 24-48 hrs. Review of Systems - Review of Systems Respiratory: negative: Cough, Dry, Shortness of Breath, Hemoptysis, SOB with Excertion, Pleuritic Pain, Sputum, Wheezing Cardiovascular: negative: chest pain, palpitations, orthopnea, paroxysmal nocturnal dyspnea, edema, light headedness - Medications/Allergies Allergies/Adverse Reactions: Allergies Allergy/AdvReac Type Severity Reaction Status Date / Time No Known Drug Allergies Allergy Verified 05/14/17 11:43 Medications: Current Medications Acetaminophen (Tylenol) 650 mg PO Q4H PRN PRN Reason: Headache/Fever or Pain Last Admin: 05/19/17 08:40 Dose: 650 mg Acetaminophen (Tylenol) 650 mg [place] Q4H PRN PRN Reason: Headache/Fever or Pain Acetaminophen/Codeine Phosphate (Tylenol #3) 1 tab PO Q4H PRN PRN Reason: Mild Pain (1-3) Atorvastatin Calcium (Lipitor) 10 mg PO HS [facility] Last Admin: 05/18/17 21:04 Dose: 10 mg Bisacodyl (Dulcolax) 10 mg PO DAILYPRN PRN PRN Reason: Constipation Dextrose/Water (Dextrose 50%) 25 gm SLOW IVP PRN PRN PRN Reason: Hypoglycemia Finasteride (Proscar) 5 mg PO DAILY [facility] Last Admin: 05/19/17 08:26 Dose: 5 mg Glucagon (Glucagon) 1 mg IM PRN PRN PRN Reason: Hypoglycemia Hydralazine HCl (Apresoline) 10 mg SLOW IVP Q6H PRN PRN Reason: SBP Greater Than 170 Last Admin: 05/16/17 04:20 Dose: 10 mg Dextrose/Water (D5w) 1,000 mls @ 0 mls/hr IV .Q0M PRN; As Directed PRN Reason: Hypoglycemia Sodium Chloride (Normal Saline 0.9%) 1,000 mls @ 100 mls/hr IV .Q10H [facility] Last Admin: 05/19/17 08:25 Dose: 1,000 mls Sodium Chloride (Normal Saline 0.9%) 200 mls @ 0 mls/hr IV ONE [facility] PRN Reason: As Directed Stop: 05/20/17 13:31 Insulin Human Isoph/Insulin Regular (Humulin 70/30) 20 units SC DAILY [facility] Last Admin: 05/19/17 08:30 Dose: 20 unit Insulin Human Lispro (Humalog) 0 units SC .MILD SLIDING SCALE PRN PRN Reason: Mild Correctional Scale Last Admin: 05/18/17 12:30 Dose: 4 units Miscellaneous Information (Communication Order-Pharmacy) 0 each FS ONE [facility] Stop: 05/19/17 23:59 Nitroglycerin (Nitrostat) 0.4 mg SL Q5MIN PRN PRN Reason: Chest Pain Sodium Chloride (Flush - Normal Saline) 10 ml IVF Q12HR [facility] Last Admin: 05/19/17 13:25 Dose: Not Given Sodium Chloride (Flush - Normal Saline) 10 ml IVF PRN PRN PRN Reason: Saline Flush Tamsulosin HCl (Flomax) 0.4 mg PO DAILY [facility] Last Admin: 05/19/17 08:26 Dose: 0.4 mg Tramadol HCl (Ultram) 50 mg PO Q6H PRN PRN Reason: Pain Last Admin: 05/19/17 14:38 Dose: 50 mg
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
[2017-05-19] MEDS: Atorvastatin Calcium 10 MG TAB PO SCH (21:10)
[2017-05-19] MEDS: hydrALAZINE 20 MG/ML VIAL SLOW IVP PRN (22:23)
[2017-05-20] MEDS: Acetaminophen 325 MG TAB PO PRN (00:29)
[2017-05-20] MEDS: traMADol HCl 50 MG TAB PO PRN ×4 (01:42→20:57)
[2017-05-20] MEDS ORDERED: CEFAZOLIN/Water 2 GM/20 ML SYRINGE SLOW IVP SCH (04:45)
[2017-05-20 05:41] LABS: #Eosinphils 0.1 thou/uL (0.0-0.7); #Lymphocytes 1.8 thou/uL (1.20-3.40); #Monocytes 0.6 thou/uL (0.11-0.59); #Neutrophils 6.5 thou/uL (1.40-6.50); %Basophils 0.4 % (0.0-1.0); %Eosinophils 0.7 % (0.0-10.0); %Lymphocytes 19.5 % (21.0-51.0); %Monocytes 7.1 % (0.0-10.0); %Neutrophils 72.3 % (42.0-75.0); Hemoglobin 11.2 g/dL (14.0-18.0); Mean Corpuscular HGB CONC 32.8 g/dL (32.0-36.0); Mean Corpuscular Hemoglobin 31.2 pg (27.0-31.0); Mean Corpuscular Volume 95.1 fl (80.0-94.0); Mean Platelet Volume 7.4 fL (7.4-10.4); Platelet Count 194 thou/uL (130-400); RBC Distribution Width 12.5 % (11.5-14.5)
[2017-05-20 05:51] LABS: Anion Gap 10 mmol/L (10-20); BUN (Urea Nitrogen) 19 mg/dL (8.4-25.7); Calc. Creatinine Clearance 71 mL/min (70-130); Calcium 8.9 mg/dL (7.8-10.44); Carbon Dioxide 22 mmol/L (23-31); Chloride 108 mmol/L (98-107); Estimated GFR-MDRD 61; Glucose 161 mg/dL (83-110); Sodium 136 mmol/L (136-145)
[2017-05-20] MEDS: Sodium Chloride 0.9% 1,000 ML IV SCH ×2 (07:32→12:01)
[2017-05-20] MEDS: Insulin NPH/Reg Insulin Hm 300 UNITS/3 ML VIAL SC SCH (08:11)
[2017-05-20] MEDS: Tamsulosin HCl 0.4 MG CAP PO SCH (08:11)
[2017-05-20] MEDS: Finasteride 5 MG TAB PO SCH (08:11)
[2017-05-20] MEDS: hydrALAZINE 20 MG/ML VIAL SLOW IVP PRN (12:02)
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
[2017-05-20] MEDS ORDERED: Midazolam HCl 2 mg/2 ml Vial ONE (14:48)
[2017-05-20] MEDS ORDERED: Fentanyl 100 MCG/2 ML VIAL ONE (14:48)
[2017-05-20] MEDS ORDERED: Propofol 500 MG/50 ML VIAL ONE (14:48)
[2017-05-20] MEDS ORDERED: Ketamine 50 MG/ML VIAL ONE (14:48)
[2017-05-20] MEDS ORDERED: CEFAZOLIN/Water 2 GM/20 ML SYRINGE ONE (16:03)
[2017-05-20] MEDS ORDERED: PROPOFOL 200 MG/20 ML VIAL ONE (16:19)
[2017-05-20] MEDS ORDERED: Ondansetron HCl/PF 4 MG/2 ML Vial IVP PRN ×2 (17:30→18:57)
--- NOTE | 2017-05-20 18:42 | PDOC.PN ---
- Subjective Encounter Start Date: 05/20/17 Encounter Start Time: 10:50 Pt seen for followup re: syncope. Awaiting EP study, no complaints. - Objective Resuscitation Status: Resuscitation Status FULL:Full Resuscitation MAR Reviewed: Yes Vital Signs & Weight: Vital Signs (12 hours) Temp Pulse Resp BP BP BP Pulse Ox 05/20/17 12:02 80 196/81 H 05/20/17 12:00 85 18 196/81 H 95 05/20/17 08:00 98 F 80 16 172/74 H 93 L Weight Weight 203 lb I&O: 05/19/17 05/20/17 05/21/17 06:59 06:59 06:59 Intake Total 3455 2814 Output Total 1175 950 Balance 2280 1864 Result Diagrams: 05/20/17 04:34 05/20/17 04:34 Additional Labs: Accuchecks 05/20/17 05/20/17 05/19/17 11:55 06:10 20:28 POC Glucose 181 H 167 H 150 H 05/19/17 17:17 POC Glucose 92 EKG Reviewed by me: Yes (Tele: NSR) Phys Exam - Physical Examination Constitutional: NAD HEENT: moist MMs Neck: supple Respiratory: clear to auscultation bilateral Cardiovascular: RRR Gastrointestinal: soft Neurological: moves all 4 limbs Psychiatric: normal affect Dx/Plan (1) Syncope Code(s): R55 - SYNCOPE AND COLLAPSE Status: Acute (2) Rhabdomyolysis Code(s): M62.82 - RHABDOMYOLYSIS Status: Acute (3) BPH (benign prostatic hyperplasia) Code(s): N40.0 - BENIGN PROSTATIC HYPERPLASIA WITHOUT LOWER URINRY TRACT SYMP Status: Chronic (4) DM2 (diabetes mellitus, type 2) Status: Chronic (5) HTN (hypertension) Code(s): I10 - ESSENTIAL (PRIMARY) HYPERTENSION Status: Chronic (6) JUD (acute kidney injury) Code(s): N17.9 - ACUTE KIDNEY FAILURE, UNSPECIFIED Status: Resolved - Plan * . Await outcome of EP study. JUD has resolved. Monitor vital signs and telemetry. Review of Systems - Review of Systems Cardiovascular: negative: chest pain, palpitations, orthopnea, paroxysmal nocturnal dyspnea, edema, light headedness, other Gastrointestinal: negative: Nausea, Vomiting, Abdominal Pain, Diarrhea, Constipation, Melena, Hematochezia - Medications/Allergies Allergies/Adverse Reactions: Allergies Allergy/AdvReac Type Severity Reaction Status Date / Time No Known Drug Allergies Allergy Verified 05/14/17 11:43 Medications: Current Medications Acetaminophen (Tylenol) 650 mg PO Q4H PRN PRN Reason: Headache/Fever or Pain Last Admin: 05/20/17 00:29 Dose: 650 mg Acetaminophen (Tylenol) 650 mg WA Q4H PRN PRN Reason: Headache/Fever or Pain Acetaminophen/Codeine Phosphate (Tylenol #3) 1 tab PO Q4H PRN PRN Reason: Mild Pain (1-3) Atorvastatin Calcium (Lipitor) 10 mg PO HS [facility] Last Admin: 05/19/17 21:10 Dose: 10 mg Bisacodyl (Dulcolax) 10 mg PO DAILYPRN PRN PRN Reason: Constipation Dextrose/Water (Dextrose 50%) 25 gm SLOW IVP PRN PRN PRN Reason: Hypoglycemia Fentanyl (Pacu-Sublimaze) 50 mcg SLOW IVP Q10MIN PRN PRN Reason: Moderate to Severe Pain (6-10) Stop: 05/20/17 20:30 Finasteride (Proscar) 5 mg PO DAILY [facility] Last Admin: 05/20/17 08:11 Dose: Not Given Glucagon (Glucagon) 1 mg IM PRN PRN PRN Reason: Hypoglycemia Hydralazine HCl (Apresoline) 10 mg SLOW IVP Q6H PRN PRN Reason: SBP Greater Than 170 Last Admin: 05/20/17 12:02 Dose: 10 mg Dextrose/Water (D5w) 1,000 mls @ 0 mls/hr IV .Q0M PRN; As Directed PRN Reason: Hypoglycemia Sodium Chloride (Normal Saline 0.9%) 1,000 mls @ 100 mls/hr IV .Q10H [facility] Last Admin: 05/20/17 12:01 Dose: 1,000 mls Insulin Human Isoph/Insulin Regular (Humulin 70/30) 20 units SC DAILY [facility] Last Admin: 05/20/17 08:11 Dose: Not Given Insulin Human Lispro (Humalog) 0 units SC .MILD SLIDING SCALE PRN PRN Reason: Mild Correctional Scale Last Admin: 05/18/17 12:30 Dose: 4 units Nitroglycerin (Nitrostat) 0.4 mg SL Q5MIN PRN PRN Reason: Chest Pain Ondansetron HCl (Pacu-Zofran) 4 mg IVP ONE PRN PRN Reason: Nausea/Vomiting Stop: 05/20/17 20:30 Sodium Chloride (Flush - Normal Saline) 10 ml IVF Q12HR [facility] Last Admin: 05/20/17 08:11 Dose: Not Given Sodium Chloride (Flush - Normal Saline) 10 ml IVF PRN PRN PRN Reason: Saline Flush Tamsulosin HCl (Flomax) 0.4 mg PO DAILY [facility] Last Admin: 05/20/17 08:11 Dose: Not Given Tramadol HCl (Ultram) 50 mg PO Q6H PRN PRN Reason: Pain Last Admin: 05/20/17 13:07 Dose: 50 mg
[2017-05-20] MEDS ORDERED: diphenhydrAMINE 25 MG CAP PO PRN (18:57)
[2017-05-20] MEDS ORDERED: Bisacodyl 5 MG TAB PO PRN (18:57)
[2017-05-20] MEDS ORDERED: Temazepam 15 MG CAP PO PRN (18:57)
[2017-05-20] MEDS ORDERED: Acetaminophen 325 MG TAB PO PRN (18:57)
[2017-05-20] MEDS ORDERED: Nitroglycerin 0.4 MG TAB (25 Tab Bottle) SL PRN (18:57)
[2017-05-20] MEDS ORDERED: Bisacodyl 10 MG SUPP PR PRN (18:57)
[2017-05-20] MEDS ORDERED: Silver Sulfadiazine 1% Cream 50 GM JAR TOP PRN (18:57)
[2017-05-20] MEDS ORDERED: Mag-Al 1200 mg/1200 mg/30 ML UDCUP PO PRN (18:57)
[2017-05-20] MEDS ORDERED: Acetaminophen/Codeine 30-300mg Tablet PO PRN ×2 (19:00)
[2017-05-20] MEDS: Atorvastatin Calcium 10 MG TAB PO SCH (20:57)
[2017-05-20] MEDS: Cephalexin 250 MG CAP PO SCH (22:37)
[2017-05-20] MEDS ORDERED: Cephalexin 250 MG CAP PO SCH (23:59)
[2017-05-21] MEDS: traMADol HCl 50 MG TAB PO PRN ×3 (00:31→13:42)
[2017-05-21] MEDS: Cephalexin 250 MG CAP PO SCH ×2 (05:00→14:41)
[2017-05-21 05:41] LABS: #Eosinphils 0.1 thou/uL (0.0-0.7); #Lymphocytes 1.9 thou/uL (1.20-3.40); #Neutrophils 8.3 thou/uL (1.40-6.50); %Basophils 0.1 % (0.0-1.0); %Eosinophils 0.7 % (0.0-10.0); %Lymphocytes 17.2 % (21.0-51.0); %Monocytes 8.4 % (0.0-10.0); %Neutrophils 73.6 % (42.0-75.0); Hemoglobin 11.9 g/dL (14.0-18.0); Mean Corpuscular HGB CONC 33.5 g/dL (32.0-36.0); Mean Corpuscular Hemoglobin 32.2 pg (27.0-31.0); Mean Platelet Volume 7.3 fL (7.4-10.4); Platelet Count 207 thou/uL (130-400); RBC Distribution Width 12.5 % (11.5-14.5); White Blood Cell (WBC) Count 11.3 thou/uL (4.8-10.8)
[2017-05-21 05:59] LABS: Anion Gap 13 mmol/L (10-20); BUN (Urea Nitrogen) 20 mg/dL (8.4-25.7); Calc. Creatinine Clearance 61 mL/min (70-130); Calcium 9.1 mg/dL (7.8-10.44); Carbon Dioxide 21 mmol/L (23-31); Chloride 107 mmol/L (98-107); Estimated GFR-MDRD 52; Glucose 181 mg/dL (83-110); Potassium 4.1 mmol/L (3.5-5.1); Sodium 137 mmol/L (136-145)
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
--- NOTE | 2017-05-21 07:40 | RAD ---
CHEST 1 VIEW: HISTORY: A 77-year-old male for post cardiac device placement. COMPARISON: 05/14/17. FINDINGS: Left ICD. Minimal pleural and parenchymal changes in the left base and some horizontal linear parenc hymal changes in the right base. No evidence for pneumothorax. IMPRESSION: Left implantable cardioverter defibrillator placement. Minimal cardiomegaly. Worsening pleural and parenchymal opacity changes in the left base and some linear parenchymal changes in the right mid skyla g zone. Continued short-term followup for clearing or stability. POS: OBDULIO
[2017-05-21] MEDS: Finasteride 5 MG TAB PO SCH (08:16)
[2017-05-21] MEDS: Tamsulosin HCl 0.4 MG CAP PO SCH (08:16)
[2017-05-21] MEDS: Insulin NPH/Reg Insulin Hm 300 UNITS/3 ML VIAL SC SCH (08:17)
[2017-05-21] MEDS ORDERED: Sodium Chloride 0.9% 1,000 ML IV SCH (09:15)
[2017-05-21 12:01] VITALS: BP 170/74; TEMP 98
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
--- NOTE | 2017-05-21 16:09 | PQF ---
CLINICAL DOCUMENTATION IMPROVEMENT CLARIFICATION FORM: ICD-10 Updated PLEASE DO AN ADDENDUM TO THE PROGRESS NOTE WITH ANY DOCUMENTATION UPDATES OR ADDITIONS AND CARRY THROUGH TO DC SUMMARY. THANK YOU. DATE: 05/21/17 ATTN: Dr. Carter Please exercise your independent, professional judgment in responding to the clarification form. Clinical indicators are provided on the bottom of this form for your review Please check appropriate box(s): Syncope Due to: [ ] Dehydration [ ] Cardiac Arrhythmia [ ] Aortic Stenosis [ ] Hypertrophic Cardiomyopathy [ ] Other diagnosis [ X ] Unable to determine For continuity of documentation, please document condition throughout progress notes and discharge summary. Thank You. CLINICAL INDICATORS - SIGNS / SYMPTOMS / LABS PN 05/20: SYNCOPE. ACUTE EP STUDY 05/20: INDUCIBLE VENTRICULAR TACHYCARDIA WHICH WAS HEMODYNAMICALLY UNSTABLE & REQUIRING DEFIBRILLATION. RISKS: H&P: SYNCOPAL EPISODE. HX OF HTN, DM 2. TREATMENT: 05/20: EP STUDY: PROCEED W/ DUAL CHAMBER ICD IMPLANTATION & EXPLANTATION OF LOOP RECORDER. Thank you, Chrisyt (This form is maintained as a part of the permanent medical record) 2015 [employer], [employer]. All Rights Reserved Christy Carlisle RN, BSN [email or web address] Office: [phone] [facility]
[2017-05-21] MEDS ORDERED: Metoprolol Tartrate 25 MG TAB PO SCH (21:00)
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
--- NOTE | 2017-05-21 21:13 | EKG ---
Test Reason : SITTING UP IN CHAIR Blood Pressure : / mmHG Vent. Rate : 079 BPM Atrial Rate : 079 BPM P-R Int : 262 ms QRS Dur : 102 ms QT Int : 390 ms P-R-T Axes : 052 -28 069 degrees QTc Int : 447 ms Sinus rhythm with 1st degree A-V block Inferior infarct (cited on or before 12-JUN-2010) Possible Anterior infarct (cited on or before 12-JUN-2010) Abnormal ECG When compared with ECG of 20-MAY-2017 21:08, (Unconfirmed) Nonspecific T wave abnormality no longer evident in Inferior leads Confirmed by YAIR DEUTSCH ([id number]) on 05/21/2017 9:13:18 PM Referred By: [facility] Confirmed By:YAIR DEUTSCH
--- NOTE | 2017-05-21 21:20 | EKG ---
Test Reason : Blood Pressure : / mmHG Vent. Rate : 097 BPM Atrial Rate : 097 BPM P-R Int : 246 ms QRS Dur : 104 ms QT Int : 334 ms P-R-T Axes : 073 -21 013 degrees QTc Int : 424 ms Sinus rhythm with 1st degree A-V block Inferior infarct (cited on or before 12-JUN-2010) Anterior infarct (cited on or before 12-JUN-2010) Abnormal ECG When compared with ECG of 14-MAY-2017 09:55, Nonspecific T wave abnormality now evident in Inferior leads Confirmed by YAIR DEUTSCH ([id number]) on 05/21/2017 9:19:53 PM Referred By: [facility] Confirmed By:YAIR DEUTSCH
--- NOTE | 2017-05-22 10:26 | EEG ---
Referring Physician: DR. Paul AHN EEG # [id number] TEST TYPE: ROUTINE PORTABLE INPATIENT DATE OF EEG BEING DONE: 05/14/2017 REASON FOR EEG: Syncope EEG DESCRIPTION: This is a 21 channel EEG recording. Electrodes are placed using 10-20 international system. The background rhythm is a predominantly 14-20 Hz, low to medium low voltage beta rhythm. There are also 8 Hz, low to medium voltage, alpha rhythm noted. This EEG is severely degraded by motion and electrode artifact. PHOTIC STIMULATION: Showed no effect. HYPERVENTILATION: Could not be performed. There are no epileptiform discharges or transient asymmetry noted. IMPRESSION: This is essentially normal EEG. This EEG is severely degraded by motion and electrode artifact. Please correlate findings clinically. Business Services Assistant: MATT Scouring Machine Operator: [email or web address]
== END 2017-05-21 15:19 | disposition home or self-care (01) | DRG 225 ==
LOC: ERS 09:42 → ERHOLD 11:26 → 2NO 15:43
PROVIDERS: ADMIT Internal Medicine; ATTEND Internal Medicine
PROC: 0JH602Z Insertion of Monitoring Device into Chest Subcutaneous Tissue and Fascia, Open Approach (ICD-10-PCS; principal; 2017-05-15)
PROC: 4A023N7 Measurement of Cardiac Sampling and Pressure, Left Heart, Percutaneous Approach (ICD-10-PCS; 2017-05-19)
PROC: B2111ZZ Fluoroscopy of Multiple Coronary Arteries using Low Osmolar Contrast (ICD-10-PCS; 2017-05-19)
PROC: B2151ZZ Fluoroscopy of Left Heart using Low Osmolar Contrast (ICD-10-PCS; 2017-05-19)
PROC: 0JH608Z Insertion of Defibrillator Generator into Chest Subcutaneous Tissue and Fascia, Open Approach (ICD-10-PCS; 2017-05-20)
PROC: 02HK3KZ Insertion of Defibrillator Lead into Right Ventricle, Percutaneous Approach (ICD-10-PCS; 2017-05-20)
PROC: 02H63KZ Insertion of Defibrillator Lead into Right Atrium, Percutaneous Approach (ICD-10-PCS; 2017-05-20)
PROC: 02583ZZ Destruction of Conduction Mechanism, Percutaneous Approach (ICD-10-PCS; 2017-05-20)
PROC: 4A023FZ Measurement of Cardiac Rhythm, Percutaneous Approach (ICD-10-PCS; 2017-05-20)
PROC: 4A0234Z Measurement of Cardiac Electrical Activity, Percutaneous Approach (ICD-10-PCS; 2017-05-20)
PROC: 02K83ZZ Map Conduction Mechanism, Percutaneous Approach (ICD-10-PCS; 2017-05-20)
PROC: 0JPT32Z Removal of Monitoring Device from Trunk Subcutaneous Tissue and Fascia, Percutaneous Approach (ICD-10-PCS; 2017-05-20)
DX: R55 Syncope and collapse (principal); N17.9 Acute kidney failure, unspecified; I47.2 Ventricular tachycardia; E87.1 Hypo-osmolality and hyponatremia; M62.82 Rhabdomyolysis; E11.9 Type 2 diabetes mellitus without complications; I25.5 Ischemic cardiomyopathy; I25.10 Atherosclerotic heart disease of native coronary artery without angina pectoris; I10 Essential (primary) hypertension; E78.5 Hyperlipidemia, unspecified; Z79.4 Long term (current) use of insulin; E87.6 Hypokalemia; I25.2 Old myocardial infarction; R94.39 Abnormal result of other cardiovascular function study; R91.1 Solitary pulmonary nodule; N40.0 Benign prostatic hyperplasia without lower urinary tract symptoms; S30.1XXA Contusion of abdominal wall, initial encounter; S00.83XA Contusion of other part of head, initial encounter; V48.0XXA Car driver injured in noncollision transport accident in nontraffic accident, initial encounter
CPT/HCPCS: 33249; 33282; 33284; 36415; 36416; 70450; 70486; 71045; 71260; 72125; 72170; 74177; 76770; 76942; 78452; 80048; 80053; 80306; 80307; 81003; 81015; 82436; 82550; 82553; 82570; 82805; 83690; 83880; 84133; 84300; 84484; 85025; 85610; 85730; 86850; 86900; 86901; 92960; 93005; 93010; 93017; 93306; 93458; 93620; 93641; 93798; 95816; 95819; 96360; A4216; A9500; C1721; C1730; C1764; C1769; C1777; C1898; G0390; J0360; J1644; J1815; J2250; J2704; J2785; J3010; J3490

== ENCOUNTER 2019-01-11 05:13 | Inpatient (IN) | payer MEDICARE ==
[2019-01-11] MEDS ORDERED: Azithromycin 500 MG VIAL ONE (05:34)
[2019-01-11] MEDS ORDERED: cefTRIAXone\\ROCEPHIN 1 GM VIAL ONE (05:34)
[2019-01-11] MEDS ORDERED: Acetaminophen 500 MG TAB ONE (05:34)
[2019-01-11 06:17] LABS: #Basophils 0.1 thou/uL (0.0-0.2); #Eosinphils 0.1 thou/uL (0.0-0.7); #Monocytes 1.1 thou/uL (0.11-0.59); #Neutrophils 15.3 thou/uL (1.40-6.50); %Basophils 0.4 % (0.0-1.0); %Eosinophils 0.6 % (0.0-10.0); %Lymphocytes 10.9 % (21.0-51.0); %Monocytes 5.8 % (0.0-10.0); %Neutrophils 82.2 % (42.0-75.0); Hemoglobin 13.9 g/dL (14.0-18.0); Mean Corpuscular Hemoglobin 31.2 pg (27.0-31.0); Mean Corpuscular Volume 91.8 fL (78.0-98.0); Mean Platelet Volume 7.7 fL (7.4-10.4); Platelet Count 182 thou/uL (130-400); RBC Distribution Width 12.9 % (11.5-14.5); Red Blood Cell (RBC) Count 4.45 mill/uL (4.70-6.10); White Blood Cell (WBC) Count 18.6 thou/uL (4.8-10.8)
[2019-01-11 06:38] LABS: ALT (SGPT) 17 U/L (8-55); AST (SGOT) 15 U/L (5-34); Albumin 3.8 g/dL (3.4-4.8); Alkaline Phosphatase 86 U/L (40-110); Anion Gap 11 mmol/L (10-20); BUN (Urea Nitrogen) 25 mg/dL (8.4-25.7); Bilirubin, Total 0.6 mg/dL (0.2-1.2); Calc. Creatinine Clearance 0 mL/min (70-130); Carbon Dioxide 25 mmol/L (23-31); Chloride 102 mmol/L (98-107); Estimated GFR-MDRD 38; Globulin 3.8 g/dL (2.4-3.5); Glucose 249 mg/dL (83-110); Potassium 4.2 mmol/L (3.5-5.1); Protein, Total 7.6 g/dL (5.8-8.1); Sodium 134 mmol/L (136-145)
[2019-01-11] MEDS ORDERED: Acetaminophen 325 MG TAB PO PRN (07:22)
[2019-01-11 08:13] VITALS: BMI 29.2
[2019-01-11] MEDS ORDERED: Dextrose 5% in Water 1,000 ML IV PRN (08:48)
[2019-01-11] MEDS ORDERED: Dextrose 50% Abboject 50 ML SYRINGE SLOW IVP PRN (08:48)
[2019-01-11] MEDS ORDERED: Aspirin 81 mg Enteric Coated Tablet PO SCH (09:00)
--- NOTE | 2019-01-11 09:21 | RAD ---
SINGLE VIEW CHEST: Date: 01/11/19 COMPARISON: 05/14/17. HISTORY: Cough and congestion. Fever. FINDINGS: Single view of the chest shows an enlarged but stable cardiomediastinal silhouette. A pacemaker is se en with its leads in the right atrium and ventricle. There is no evidence of consolidation, mass, or pleural effusion. Degenerative changes are seen in the spine. IMPRESSION: No evidence of acute cardiopulmonary disease. POS: CET
[2019-01-11] MEDS ORDERED: Benzonatate 100 MG CAP PO PRN (09:24)
[2019-01-11] MEDS: Enoxaparin Sodium 40 MG/0.4 ML SYRINGE SC SCH (10:13)
[2019-01-11] MEDS: Tamsulosin HCl 0.4 MG CAP PO SCH (10:13)
[2019-01-11] MEDS: Finasteride 5 MG TAB PO SCH (10:13)
--- NOTE | 2019-01-11 10:41 | HP ---
CHIEF COMPLAINT: Cough and shortness of breath. HISTORY OF PRESENT ILLNESS: The patient is a 78-year-old male with past medical history of CAD, hypertension, and diabetes, who presented to the hospital with complaints of shortness of breath and cough going on for the past 9 days. The patient stated that he has been taking [id number] stuff for his cough and congestion for the past 9 days, however, his symptoms got worse. He had some subjective fevers last night, so he came into the hospital for further evaluation. The patient also states that he has not been eating very much, some subjective fevers, some generalized body aches and pains and some chills. He states he has been compliant with all his medications. Denies any chest tightness or chest pain, any nausea, vomiting, or diarrhea. The patient says his cough is dry, nonproductive. He has been having some nasal congestion and some rhinorrhea. REVIEW OF SYSTEMS: All negative except for the ones mentioned above in the HPI. PAST MEDICAL HISTORY: As of the following; 1. He has had a history of CAD. He had a catheterization in 2018, which indicated occluded RCA, also LAD was occluded 50%, circumflex 60%. 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 2. He has a history of diabetes. 3. He has a history of chronic neck pain. 4. Hyperlipidemia. PAST SURGICAL HISTORY: He has had ICD recently in 2018, and significant bilateral cataract surgery, and neck surgery. SOCIAL HISTORY: He used to be a former cigar smoker, however, quit many years ago. Denies currently any tobacco use or alcohol use or any other recreational use. He lives alone. He is a full code. FAMILY HISTORY: No history for heart disease or cancers. ALLERGIES: HE HAS NO KNOWN DRUG ALLERGIES. MEDICATIONS: Include; 1. Pravastatin 40 mg daily. 2. Aspirin 81 mg daily. 3. Humalog 70/30 of 20 units daily. 4. Finasteride 5 mg daily. 5. Flomax 0.4 mg daily. PHYSICAL EXAMINATION: VITAL SIGNS: As of the following; temperature of 98.6, pulse 77, respiratory rate 18, oxygen saturations 96% on 3 L, and blood pressure 157/77. GENERAL: He is awake, alert, and oriented x3. Does not appear in any distress. HEENT: Normocephalic, atraumatic. No lymphadenopathy noted. Pupils are equal and reactive to light. CARDIOVASCULAR: S1 and S2 present. No murmurs, rubs, or gallops. He does have a midsternum surgical incision. LUNGS: He has mild expiratory wheezing to all over. ABDOMEN: Soft and nontender. Bowel sounds are present x2. EXTREMITIES: He has mild lower extremity 1+ pitting edema. NEURO: No focal deficits noted. SKIN: No cuts, lesions, or bruises noted. LABORATORY RESULTS: He has WBCs of 18.6, hemoglobin of 13.9, hematocrit of 40.8, and platelets of 182. Chemistries; sodium of 134, potassium of 4.2. His creatinine is 1.73, glucose of 249 and his proBNP is 170. Lactic acid is 1.2. IMAGING DATA: His chest x-ray shows a possible mild right lower lung pneumonia. ASSESSMENT AND PLAN: The patient is a very pleasant 78-year-old male, who presents to the hospital with complaints of cough and congestion for the past 9 days. 1. Community-acquired pneumonia. The patient has been having symptoms going on for the past few days. I will start him on ceftriaxone and azithromycin. We will also check a respiratory viral panel on him. Started on some DuoNeb and continue to monitor this patient. Also, I will collect sputum if he starts producing any sputum. P.r.n. medications for cough. His previous records indicated back in [address] of the chest since the patient has had a pulmonary nodule, I will get in touch with the PCP if he has not had any recent CT of the chest. I will go ahead and order CT chest for better visualization of his lungs given the fact that he has had a history of prior smoking. 2. Diabetes. I will continue his home medications and put him on sliding scale Accu-Cheks a.c. and at bedtime. 3. Coronary artery disease. I will continue the aspirin and the statin. He currently denies any chest pain. 4. Leukocytosis. This is most likely secondary to his underlying pneumonia. We will monitor. 5. Chronic kidney disease, stage 3 to 4. I will continue to monitor. 6. Deep venous thrombosis prophylaxis. I will put the patient on heparin subcu. Job ID: [id number]
[2019-01-11] MEDS: HumuLIN 70/30 (300 UNITS/3 ML VIAL) SC SCH (11:48)
[2019-01-11] MEDS: Furosemide 40 MG TAB PO SCH (21:28)
[2019-01-11] MEDS: Atorvastatin Calcium 10 MG TAB PO SCH (21:29)
[2019-01-11] MEDS: Metoprolol Tartrate 25 MG TAB PO SCH (21:29)
[2019-01-12] MEDS: Azithromycin 500 MG in Sodium Chloride 0.9% 250 ML 250 ML IVPB SCH (05:56)
[2019-01-12] MEDS: cefTRIAXone\\ROCEPHIN 1 GM in Sodium Chloride 0.9% 100 ML IVPB SCH (05:56)
[2019-01-12] MEDS: Insulin Regular 300 UNITS/3 ML VIAL SC PRN ×2 (06:13→20:22)
[2019-01-12 06:32] LABS: #Eosinphils 0.1 thou/uL (0.0-0.7); #Lymphocytes 1.8 thou/uL (1.20-3.40); #Monocytes 0.8 thou/uL (0.11-0.59); #Neutrophils 6.9 thou/uL (1.40-6.50); %Basophils 0.1 % (0.0-1.0); %Lymphocytes 18.6 % (21.0-51.0); %Monocytes 8.6 % (0.0-10.0); %Neutrophils 71.7 % (42.0-75.0); Hemoglobin 12.5 g/dL (14.0-18.0); Mean Corpuscular HGB CONC 34.2 g/dL (32.0-36.0); Mean Corpuscular Hemoglobin 31.3 pg (27.0-31.0); Mean Corpuscular Volume 91.3 fL (78.0-98.0); Mean Platelet Volume 8.2 fL (7.4-10.4); Platelet Count 166 thou/uL (130-400); RBC Distribution Width 13.2 % (11.5-14.5); White Blood Cell (WBC) Count 9.7 thou/uL (4.8-10.8)
[2019-01-12 07:00] LABS: Anion Gap 11 mmol/L (10-20); BUN (Urea Nitrogen) 20 mg/dL (8.4-25.7); Calc. Creatinine Clearance 58 mL/min (70-130); Calcium 8.5 mg/dL (7.8-10.44); Carbon Dioxide 24 mmol/L (23-31); Chloride 104 mmol/L (98-107); Estimated GFR-MDRD 48; Glucose 230 mg/dL (83-110); Potassium 4.2 mmol/L (3.5-5.1); Sodium 135 mmol/L (136-145)
[2019-01-12] MEDS: Lisinopril 5 MG TAB PO SCH (08:30)
[2019-01-12] MEDS: Tamsulosin HCl 0.4 MG CAP PO SCH (08:30)
[2019-01-12] MEDS: Finasteride 5 MG TAB PO SCH (08:30)
[2019-01-12] MEDS: Furosemide 40 MG TAB PO SCH ×2 (08:30→20:25)
[2019-01-12] MEDS: Metoprolol Tartrate 25 MG TAB PO SCH ×2 (08:30→20:22)
[2019-01-12] MEDS: HumuLIN 70/30 (300 UNITS/3 ML VIAL) SC SCH (08:31)
[2019-01-12] MEDS: Enoxaparin Sodium 40 MG/0.4 ML SYRINGE SC SCH (08:31)
--- NOTE | 2019-01-12 14:24 | PDOC.HOSPP ---
- Subjective Encounter Date: 01/12/19 Encounter Time: 11:30 Subjective: pt up in bed feels well - Objective Vital Signs & Weight: Vital Signs (12 hours) Temp Pulse Resp BP BP Pulse Ox 01/12/19 13:55 66 15 100 01/12/19 11:55 97.6 F 60 18 143/62 H 95 01/12/19 10:54 96.7 F L 60 16 163/69 H 100 01/12/19 10:43 60 14 100 01/12/19 08:30 94 L 01/12/19 07:45 98.1 F 63 16 152/73 H 94 L 01/12/19 07:22 98.4 F 66 18 148/68 H 95 01/12/19 07:07 59 L 15 100 01/12/19 04:15 98.8 F 61 20 145/68 H 95 Weight Admit Weight 210 lb 2 oz Weight 210 lb 2 oz I&O: 01/11/19 01/12/19 01/13/19 06:59 06:59 06:59 Intake Total 690 Balance 690 Result Diagrams: 01/12/19 05:29 01/12/19 05:29 Additional Labs: Accuchecks 01/12/19 01/11/19 01/11/19 04:20 20:07 16:31 POC Glucose 240 H 146 H 111 H Hospitalist ROS - Review of Systems Respiratory: denies: cough, dry, shortness of breath, hemoptysis, SOB with excertion, pleuritic pain, sputum, wheezing, other Cardiovascular: denies: chest pain, palpitations, orthopnea, paroxysmal noc. dyspnea, edema, light headedness, other Gastrointestinal: denies: nausea, vomiting, abdominal pain, diarrhea, constipation, melena, hematochezia, other - Medication Medications: Active Medications Generic Name Dose Route Start Last Admin Trade Name Freq PRN Reason Stop Dose Admin Albuterol/Ipratropium 3 ml 01/11/19 10:30 01/12/19 13:55 Duoneb NEB 3 ml [id number] CHAPO Administration Atorvastatin Calcium 10 mg 01/11/19 21:00 01/11/19 21:29 Lipitor PO 10 mg HS CHAPO Administration Enoxaparin Sodium 40 mg 01/11/19 09:00 01/12/19 08:31 Lovenox SC 40 mg 0900 CHAPO Administration Finasteride 5 mg 01/11/19 09:00 01/12/19 08:30 Proscar PO 5 mg DAILY CHAPO Administration Furosemide 40 mg 01/11/19 21:00 01/12/19 08:30 Lasix PO 40 mg BID CHAPO Administration Azithromycin 500 mg/ Sodium 250 mls @ 250 mls/hr 01/12/19 06:00 01/12/19 05: 56 Chloride IVPB 250 mls 0600 CHAPO Administration Ceftriaxone Sodium 1 gm/ 100 mls @ 200 mls/hr 01/12/19 06:00 01/12/19 05:56 Sodium Chloride IVPB 100 mls 0600 CHAPO Administration Insulin Human Isoph/Insulin Regular 20 units 01/11/19 09:00 01/12/19 08:31 Humulin 70/30 SC 20 unit DAILY CHAPO Administration Insulin Human Regular 0 units 01/11/19 08:48 01/12/19 06:13 Humulin R SC 3 unit .MILD SLIDING SCALE PRN Administration Mild Correctional Scale Lisinopril 5 mg 01/12/19 09:00 01/12/19 08:30 Zestril PO 5 mg DAILY CHAPO Administration Metoprolol Tartrate 25 mg 01/11/19 21:00 01/12/19 08:30 Lopressor PO 25 mg BID CHAPO Administration Tamsulosin HCl 0.4 mg 01/11/19 09:00 01/12/19 08:30 Flomax PO 0.4 mg DAILY CHAPO Administration - Exam Heart: negative: RRR, no murmur, no gallops, no rubs, normal peripheral pulses, irregular, diminshed peripheral pulses, murmur present, II/IV, III/IV Respiratory: negative: CTAB, no wheezes, no rales, no ronchi, normal chest expansion, no tachypnea, normal percussion, rales, rhonchi, tachypneic, wheezes Gastrointestinal: negative: soft, non-tender, non-distended, normal bowel sounds , no palpable masses, no hepatomegaly, no splenomegaly, no bruit, no guarding, no rigidity, tender to palpation, distended, diminished bowl sounds, voluntary guarding Extremities: negative: no cyanosis, no clubbing, no edema, 1+ LE edema, 2+ LE edema, clubbing Hosp A/P (1) Pneumonia Code(s): J18.9 - PNEUMONIA, UNSPECIFIED ORGANISM Status: Acute (2) DM2 (diabetes mellitus, type 2) Status: Chronic (3) HTN (hypertension) Code(s): I10 - ESSENTIAL (PRIMARY) HYPERTENSION Status: Chronic - Plan will continue abx for now, pt states he feels well. He is still on oxygen and will need to be weaned off. I will start him on some steroids.
[2019-01-12] MEDS ORDERED: predniSONE 20 MG TAB PO SCH (14:30)
[2019-01-12] MEDS: Atorvastatin Calcium 10 MG TAB PO SCH (20:21)
[2019-01-13] MEDS: cefTRIAXone\\ROCEPHIN 1 GM in Sodium Chloride 0.9% 100 ML IVPB SCH (04:55)
[2019-01-13] MEDS: Azithromycin 500 MG in Sodium Chloride 0.9% 250 ML 250 ML IVPB SCH (04:57)
[2019-01-13] MEDS: Finasteride 5 MG TAB PO SCH (09:35)
[2019-01-13] MEDS: Lisinopril 5 MG TAB PO SCH (09:35)
[2019-01-13] MEDS: predniSONE 20 MG TAB PO SCH (09:35)
[2019-01-13] MEDS: Tamsulosin HCl 0.4 MG CAP PO SCH (09:35)
[2019-01-13] MEDS: Metoprolol Tartrate 25 MG TAB PO SCH ×2 (09:35→20:42)
[2019-01-13] MEDS: Furosemide 40 MG TAB PO SCH ×2 (09:35→20:42)
[2019-01-13] MEDS: Enoxaparin Sodium 40 MG/0.4 ML SYRINGE SC SCH (09:36)
[2019-01-13] MEDS: HumuLIN 70/30 (300 UNITS/3 ML VIAL) SC SCH ×2 (09:43→17:34)
[2019-01-13] MEDS ORDERED: HumuLIN 70/30 (300 UNITS/3 ML VIAL) SC SCH (12:30)
[2019-01-13] MEDS: Insulin Regular 300 UNITS/3 ML VIAL SC PRN ×2 (17:35→20:43)
[2019-01-13] MEDS: Atorvastatin Calcium 10 MG TAB PO SCH (20:42)
[2019-01-14] MEDS: cefTRIAXone\\ROCEPHIN 1 GM in Sodium Chloride 0.9% 100 ML IVPB SCH (05:08)
[2019-01-14] MEDS: Azithromycin 500 MG in Sodium Chloride 0.9% 250 ML 250 ML IVPB SCH (05:09)
[2019-01-14] MEDS: HumuLIN 70/30 (300 UNITS/3 ML VIAL) SC SCH (07:55)
[2019-01-14] MEDS: Furosemide 40 MG TAB PO SCH (07:59)
[2019-01-14] MEDS: predniSONE 20 MG TAB PO SCH (07:59)
[2019-01-14] MEDS: Metoprolol Tartrate 25 MG TAB PO SCH (07:59)
[2019-01-14] MEDS: Enoxaparin Sodium 40 MG/0.4 ML SYRINGE SC SCH (07:59)
[2019-01-14] MEDS: Tamsulosin HCl 0.4 MG CAP PO SCH (07:59)
[2019-01-14] MEDS: Finasteride 5 MG TAB PO SCH (08:00)
[2019-01-14 08:04] VITALS: BP 152/71; TEMP 97.4
[2019-01-14] MEDS: Lisinopril 5 MG TAB PO SCH (08:04)
[2019-01-14] MEDS ORDERED: HumuLIN 70/30 (300 UNITS/3 ML VIAL) SC SCH (09:00)
[2019-01-14] MEDS: Insulin Regular 300 UNITS/3 ML VIAL SC PRN (12:23)
--- NOTE | 2019-01-15 01:14 | DIS ---
DATE OF ADMISSION: 01/11/2019 DATE OF DISCHARGE: 01/14/2019 DISCHARGE DIAGNOSES: 1. Pneumonia. 2. Diabetes. 3. Hypertension. 4. Most likely chronic obstructive pulmonary disease. Has a history of previous smoking. HOSPITAL COURSE: The patient is a 78-year-old male, who initially presented to the hospital with shortness of breath. He did have respiratory viral panel, which did not indicate anything. His lung blood culture was positive for bacillus species. The patient was started on antibiotics for community-acquired pneumonia. He initially had leukocytosis, which improved. He also had a chest x-ray which indicated initially no evidence of cardiopulmonary disease. However, the patient clinically seemed to be having leukocytosis, fever, subjective fever, and also cough. The patient's BNP was 170. He improved after being put on antibiotics. I had also initially started him on some steroids and breathing treatments. HOME MEDICATIONS: Home medications will be as of the followin. Albuterol HFA q.i.d. p.r.n. 2. I put him on Advair 1 puff daily. 3. Levaquin 750 mg daily. 4. Prednisone 40 mg . 5. Aspirin 81 mg daily. 6. Furosemide 40 mg b.i.d. 7. Pravastatin 40 mg at bedtime. 8. Tamsulosin 0.4 mg b.i.d. 9. Finasteride 5 mg daily. 10. Lisinopril 5 mg daily. 11. Lopressor 25 mg b.i.d. 12. Humulin 70/30 of 20 units in the morning and 25 units at night. PHYSICAL EXAMINATION: VITAL SIGNS: Temperature of 98.8, pulse 88, respirations 16, 95% on room air, blood pressure 152/71. GENERAL: He is awake, alert, and oriented x3. Does not appear in pain or distress. CV: S1 and S2 present. No murmurs, rubs, or gallops. ABDOMEN: Soft and nontender. Bowel sounds are present x2. The patient was asked to follow up with his primary care doctor and also to get possible a prepared foods production team member. The patient has had a history of smoking; however, he has never really had a PFT done. The patient denied any chest pain during this admission. The patient again has been discharged. He will follow up with his primary. Job ID: [id number]
--- NOTE | 2019-01-16 10:48 | EKG ---
Test Reason : ER Blood Pressure : / mmHG Vent. Rate : 078 BPM Atrial Rate : 078 BPM P-R Int : 248 ms QRS Dur : 084 ms QT Int : 388 ms P-R-T Axes : 009 -32 040 degrees QTc Int : 442 ms Sinus rhythm with 1st degree A-V block Left axis deviation Inferior infarct , age undetermined Anterior infarct , age undetermined Abnormal ECG Confirmed by RAGHAV SAHA, CAROL Bernal ([id number]), development editor ELIUD URIBE ([id number]) on 01/16/2019 10:48:01 AM Referred By: RAGHAV Confirmed By:CAROL AVILEZ MD
== END 2019-01-14 14:08 | disposition home or self-care (01) | DRG 194 ==
LOC: ERS 05:13 → T4-A 06:44
PROVIDERS: ADMIT Internal Medicine; ATTEND Internal Medicine
DX: J18.9 Pneumonia, unspecified organism (principal); J44.0 Chronic obstructive pulmonary disease with (acute) lower respiratory infection; N18.4 Chronic kidney disease, stage 4 (severe); E78.5 Hyperlipidemia, unspecified; I12.9 Hypertensive chronic kidney disease with stage 1 through stage 4 chronic kidney disease, or unspecified chronic kidney disease; E11.22 Type 2 diabetes mellitus with diabetic chronic kidney disease; I25.10 Atherosclerotic heart disease of native coronary artery without angina pectoris; G89.29 Other chronic pain; Z87.891 Personal history of nicotine dependence; Z95.0 Presence of cardiac pacemaker; Z98.42 Cataract extraction status, left eye; Z98.41 Cataract extraction status, right eye
CPT/HCPCS: 36415; 36416; 71045; 80048; 80053; 83605; 83880; 85025; 87040; 87633; 93005; 94640; 96365; 96367; J0456; J0696; J1650; J1815; J3490; J7050; J7512; J7620

== ENCOUNTER 2019-04-15 09:05 | Emergency (ER) | payer MEDICARE ==
--- NOTE | 2019-04-15 09:47 | RAD ---
XR Chest Pa Lat STANDARD HISTORY: Cough COMPARISON: 01/11/2019 study. FINDINGS: Heart size is borderline enlarged with a pacemaker in place. Linear changes in the left bas e appear to represent scar. No confluent infiltrative process. IMPRESSION: Linear scarring left lung base.
== END 2019-04-15 10:47 | disposition home or self-care (01) ==
LOC: ERS 09:05
DX: J20.9 Acute bronchitis, unspecified (principal); I10 Essential (primary) hypertension; E11.9 Type 2 diabetes mellitus without complications; E78.5 Hyperlipidemia, unspecified; E78.00 Pure hypercholesterolemia, unspecified; Z87.891 Personal history of nicotine dependence; Z79.899 Other long term (current) drug therapy; Z79.82 Long term (current) use of aspirin; Z79.4 Long term (current) use of insulin
CPT/HCPCS: 71046; 87804; J7620

== ENCOUNTER 2020-04-03 07:52 | Emergency (ER) | payer MEDICARE | END 2020-04-03 08:30 | disposition home or self-care (01) | LOC: ERS 07:52 | DX: M54.5 Low back pain (principal); Z79.899 Other long term (current) drug therapy; Z79.52 Long term (current) use of systemic steroids; I10 Essential (primary) hypertension; E11.9 Type 2 diabetes mellitus without complications; E78.5 Hyperlipidemia, unspecified; Z87.891 Personal history of nicotine dependence | CPT/HCPCS: 99283 ==

== ENCOUNTER 2020-04-08 12:09 | Emergency (ER) | payer MEDICARE ==
[2020-04-08] MEDS ORDERED: Ketorolac Tromethamine 30 MG/ML VIAL ONE (12:56)
== END 2020-04-08 13:17 | disposition home or self-care (01) ==
LOC: ERS 12:09
DX: M54.5 Low back pain (principal); I10 Essential (primary) hypertension; E11.9 Type 2 diabetes mellitus without complications; E78.5 Hyperlipidemia, unspecified; Z87.891 Personal history of nicotine dependence
CPT/HCPCS: 96372; 99283; J1885

== ENCOUNTER 2021-08-02 10:53 | Inpatient (IN) | payer MEDICARE ==
[2021-08-02 11:28] LABS: #Basophils 0.1 thou/uL (0.0-0.2); #Eosinphils 0.1 thou/uL (0.0-0.7); #Lymphocytes 3.7 thou/uL (1.20-3.40); #Monocytes 0.7 thou/uL (0.11-0.59); %Eosinophils 0.9 % (0.0-10.0); %Lymphocytes 42.8 % (21.0-51.0); %Monocytes 8.4 % (0.0-10.0); %Neutrophils 46.9 % (42.0-75.0); Hemoglobin 12.7 g/dL (14.0-18.0); Mean Corpuscular HGB CONC 33.1 g/dL (32.0-36.0); Mean Corpuscular Hemoglobin 31.8 pg (27.0-31.0); Mean Platelet Volume 7.5 fL (7.4-10.4); Platelet Count 135 thou/uL (130-400); RBC Distribution Width 13.1 % (11.5-14.5); Red Blood Cell (RBC) Count 3.99 mill/uL (4.70-6.10); White Blood Cell (WBC) Count 8.5 thou/uL (4.8-10.8)
[2021-08-02 11:50] LABS: ALT (SGPT) 18 U/L (8-55); AST (SGOT) 15 U/L (5-34); Albumin 3.5 g/dL (3.4-4.8); Alkaline Phosphatase 56 U/L (40-110); Anion Gap 11 mmol/L (10-20); BUN (Urea Nitrogen) 37 mg/dL (8.4-25.7); Bilirubin, Total 0.2 mg/dL (0.2-1.2); Calc. Creatinine Clearance 0 mL/min (70-130); Carbon Dioxide 22 mmol/L (23-31); Chloride 107 mmol/L (98-107); Globulin 2.9 g/dL (2.4-3.5); Glucose 289 mg/dL (83-110); Potassium 3.9 mmol/L (3.5-5.1); Protein, Total 6.4 g/dL (5.8-8.1); Sodium 136 mmol/L (136-145)
[2021-08-02] MEDS ORDERED: Acetaminophen 325 MG TAB PO PRN (13:26)
[2021-08-02] MEDS ORDERED: Bisacodyl 5 MG TAB PO PRN (13:26)
[2021-08-02] MEDS ORDERED: Ondansetron PF 4 MG/2 ML Vial IVP PRN (13:26)
[2021-08-02] MEDS ORDERED: Ondansetron ODT 4 MG TAB PO PRN (13:26)
[2021-08-02] MEDS ORDERED: Senokot S 8.6-50 MG TAB PO PRN (13:26)
[2021-08-02] MEDS ORDERED: Dextrose 5% in Water 1,000 ML IV PRN (13:30)
[2021-08-02] MEDS ORDERED: Dextrose 50% Abboject 50 ML SYRINGE SLOW IVP PRN (13:30)
[2021-08-02] MEDS ORDERED: Dextrose 5 % And 0.9 % NaCl 1,000 ML IV SCH (13:30)
[2021-08-02 15:07] VITALS: BMI 28.7
[2021-08-02] MEDS ORDERED: Dextrose 10% in Water 1,000 ML IV SCH ×2 (15:15→20:07)
[2021-08-02] MEDS ORDERED: hydrALAZINE 20 MG/ML VIAL SLOW IVP PRN ×2 (16:51→20:11)
[2021-08-02] MEDS ORDERED: Albuterol Sulfate 2.5 mg/3 ml Neb NEB PRN (16:55)
[2021-08-02] MEDS: Metoprolol Tartrate 25 MG TAB PO SCH (20:25)
[2021-08-02] MEDS ORDERED: Furosemide 40 MG TAB PO SCH (21:00)
[2021-08-02] MEDS ORDERED: Atorvastatin Calcium 10 MG TAB PO SCH (21:00)
[2021-08-02] MEDS ORDERED: Tamsulosin HCl 0.4 MG CAP PO SCH (21:00)
[2021-08-03 03:59] LABS: #Eosinphils 0.1 thou/uL (0.0-0.7); #Lymphocytes 2.4 thou/uL (1.20-3.40); #Monocytes 0.6 thou/uL (0.11-0.59); #Neutrophils 4.2 thou/uL (1.40-6.50); %Basophils 0.1 % (0.0-1.0); %Eosinophils 1.7 % (0.0-10.0); %Lymphocytes 32.1 % (21.0-51.0); %Monocytes 8.7 % (0.0-10.0); %Neutrophils 57.4 % (42.0-75.0); Hemoglobin 13.2 g/dL (14.0-18.0); Mean Corpuscular HGB CONC 33.4 g/dL (32.0-36.0); Mean Corpuscular Hemoglobin 32.2 pg (27.0-31.0); Mean Corpuscular Volume 96.2 fL (78.0-98.0); Mean Platelet Volume 7.8 fL (7.4-10.4); Platelet Count 139 thou/uL (130-400); RBC Distribution Width 13.1 % (11.5-14.5); White Blood Cell (WBC) Count 7.3 thou/uL (4.8-10.8)
[2021-08-03 04:16] LABS: Hemoglobin A1c 7.1 % (4.0-6.0)
[2021-08-03 04:26] LABS: Anion Gap 12 mmol/L (10-20); BUN (Urea Nitrogen) 29 mg/dL (8.4-25.7); Calc. Creatinine Clearance 56 mL/min (70-130); Calcium 8.3 mg/dL (7.8-10.44); Carbon Dioxide 21 mmol/L (23-31); Cardiac Risk 2.9 (Less than 4.5); Chloride 107 mmol/L (98-107); Cholesterol 107 mg/dl (< 200 Desired); Glucose 124 mg/dL (83-110); HDL Cholesterol 37 mg/dL (>60 Neg Risk); LDL Cholesterol, Calculated 57 mg/dL; Potassium 4.9 mmol/L (3.5-5.1); Sodium 135 mmol/L (136-145); Triglycerides 65 mg/dL (Less than 150)
[2021-08-03] MEDS ORDERED: Mometasone/Formoterol 200/5 60 PUFF INH SCH (07:00)
[2021-08-03] MEDS: Furosemide 40 MG TAB PO SCH ×2 (08:25→14:46)
[2021-08-03] MEDS: Metoprolol Tartrate 25 MG TAB PO SCH (08:25)
[2021-08-03] MEDS ORDERED: Finasteride 5 MG TAB PO SCH (09:00)
[2021-08-03] MEDS ORDERED: Lisinopril 5 MG TAB PO SCH (09:00)
[2021-08-03] MEDS ORDERED: Saccharomyces boulardii 250 MG CAP PO SCH (09:00)
[2021-08-03] MEDS ORDERED: Enoxaparin Sodium 40 MG/0.4 ML SYRINGE SC SCH (09:00)
[2021-08-03] MEDS ORDERED: Aspirin 81 mg Enteric Coated Tablet PO SCH (09:00)
[2021-08-03 11:42] VITALS: TEMP 97.7
[2021-08-03 12:13] LABS: Bilirubin Negative (Negative); Blood, Urine Negative (Negative); Clarity Clear (Clear); Glucose, Urine (Dipstick) 30 mg/dL (Negative); Ketone, Urine Negative (Negative); Leukocyte Negative Leu/uL (Negative); Nitrite Negative (Negative); Protein, Urine (Dipstick) Negative (Neg-Trace); RBC/HPF 0-3 HPF (0-3); Specific Gravity, Urine 1.016 (1.002-1.036); Squamous Epithelial 0-3 HPF (0-3); Urobilinogen Normal mg/dL (Less than 2); WBC/HPF 0-3 HPF (0-3); pH, Urine 6.5 (5.0-9.0)
[2021-08-03 12:15] LABS: Bacteria/HPF Rare-Few HPF (None Seen); Urine Culture Reflex No No
[2021-08-03 12:37] VITALS: BP 161/72
== END 2021-08-03 15:36 | disposition home or self-care (01) | DRG 637 ==
LOC: ERS 10:53 → IMCU/EMU 13:23 → OBSVTOIN 08-03 05:33
PROVIDERS: ADMIT Family Medicine; ATTEND Internal Medicine
DX: E11.649 Type 2 diabetes mellitus with hypoglycemia without coma (principal); G93.41 Metabolic encephalopathy; I50.32 Chronic diastolic (congestive) heart failure; I13.0 Hypertensive heart and chronic kidney disease with heart failure and stage 1 through stage 4 chronic kidney disease, or unspecified chronic kidney disease; N18.9 Chronic kidney disease, unspecified; I25.10 Atherosclerotic heart disease of native coronary artery without angina pectoris; E11.22 Type 2 diabetes mellitus with diabetic chronic kidney disease; J44.9 Chronic obstructive pulmonary disease, unspecified; E78.5 Hyperlipidemia, unspecified; N40.0 Benign prostatic hyperplasia without lower urinary tract symptoms; E11.65 Type 2 diabetes mellitus with hyperglycemia; Z95.810 Presence of automatic (implantable) cardiac defibrillator; Z79.82 Long term (current) use of aspirin; Z79.899 Other long term (current) drug therapy; Z79.84 Long term (current) use of oral hypoglycemic drugs
CPT/HCPCS: 36415; 36416; 71045; 80048; 80053; 80061; 81001; 83036; 83735; 83880; 84443; 85025; 93005; J1650

== ENCOUNTER 2021-08-24 13:15 | Inpatient (IN) | payer MEDICARE ==
[2021-08-24] MEDS ORDERED: Dextrose 5% in Water 1,000 ML IV PRN (14:15)
[2021-08-24] MEDS ORDERED: Morphine 2 MG/ML VIAL SLOW IVP PRN (14:15)
[2021-08-24] MEDS ORDERED: Promethazine HCl 25 MG/ML VIAL IM PRN (14:15)
[2021-08-24] MEDS ORDERED: Dextrose 50% Abboject 50 ML SYRINGE SLOW IVP PRN (14:15)
[2021-08-24] MEDS ORDERED: Ondansetron PF 4 MG/2 ML Vial IVP PRN (14:15)
[2021-08-24] MEDS ORDERED: Sodium Chloride 0.9% 1,000 ML IV SCH ×3 (14:15→14:45)
[2021-08-24] MEDS ORDERED: Cyclobenzaprine 10 MG TAB PO PRN (14:18)
[2021-08-24] MEDS ORDERED: traMADol HCl 50 MG TAB PO PRN (14:18)
[2021-08-24 14:20] LABS: #Lymphocytes 1.8 thou/uL (1.20-3.40); #Monocytes 0.6 thou/uL (0.11-0.59); #Neutrophils 8.5 thou/uL (1.40-6.50); %Eosinophils 0.4 % (0.0-10.0); %Monocytes 5.7 % (0.0-10.0); %Neutrophils 77.9 % (42.0-75.0); Hemoglobin 13.6 g/dL (14.0-18.0); Mean Corpuscular Hemoglobin 31.6 pg (27.0-31.0); Mean Corpuscular Volume 95.8 fL (78.0-98.0); Mean Platelet Volume 7.7 fL (7.4-10.4); Platelet Count 163 thou/uL (130-400); White Blood Cell (WBC) Count 10.9 thou/uL (4.8-10.8)
[2021-08-24] MEDS ORDERED: Morphine 4 MG/ML VIAL ONE (14:26)
[2021-08-24] MEDS ORDERED: Ondansetron PF 4 MG/2 ML Vial ONE (14:26)
[2021-08-24] MEDS ORDERED: Albuterol Sulfate 1.25 MG/3 ML NEB NEB PRN (14:42)
[2021-08-24 14:44] LABS: ALT (SGPT) 18 U/L (8-55); AST (SGOT) 15 U/L (5-34); Albumin 3.9 g/dL (3.4-4.8); Alkaline Phosphatase 68 U/L (40-110); Anion Gap 11 mmol/L (10-20); BUN (Urea Nitrogen) 40 mg/dL (8.4-25.7); Bilirubin, Total 0.6 mg/dL (0.2-1.2); Calc. Creatinine Clearance 0 mL/min (70-130); Calcium 8.8 mg/dL (7.8-10.44); Carbon Dioxide 22 mmol/L (23-31); Chloride 110 mmol/L (98-107); Globulin 3.2 g/dL (2.4-3.5); Glucose 133 mg/dL (83-110); Potassium 4.8 mmol/L (3.5-5.1); Protein, Total 7.1 g/dL (5.8-8.1); Sodium 138 mmol/L (136-145)
[2021-08-24] MEDS ORDERED: hydrALAZINE 20 MG/ML VIAL SLOW IVP PRN (14:56)
[2021-08-24] MEDS ORDERED: Acetaminophen 500 MG TAB PO SCH (15:00)
[2021-08-24] MEDS ORDERED: traMADol HCl 50 MG TAB PO SCH ×2 (15:00→16:00)
[2021-08-24 15:08] LABS: INR-International Normal Ratio 1.2
[2021-08-24 15:09] LABS: PTT 36.6 sec (22.9-36.1)
[2021-08-24 15:16] LABS: Troponin I 0.013 ng/mL (< 0.028)
[2021-08-24] MEDS ORDERED: ceFAZolin 2 GM/Dextrose 50 ML 2 GM in Premix Bag 1 BAG IVPB SCH (15:30)
[2021-08-24] MEDS: Acetaminophen 500 MG TAB PO SCH ×2 (17:32→23:17)
[2021-08-24] MEDS: traMADol HCl 50 MG TAB PO SCH (17:33)
[2021-08-24 17:56] VITALS: BMI 29.2
[2021-08-24] MEDS: Famotidine 20 MG TAB PO SCH (20:38)
[2021-08-24] MEDS: Sodium Chloride 0.9% 1,000 ML IV SCH (20:38)
[2021-08-24] MEDS: Metoprolol Tartrate 25 MG TAB PO SCH (20:38)
[2021-08-24] MEDS: Atorvastatin Calcium 10 MG TAB PO SCH (20:38)
[2021-08-24] MEDS: Senokot S 8.6-50 MG TAB PO SCH (20:39)
[2021-08-24] MEDS: Tamsulosin HCl 0.4 MG CAP PO SCH (20:39)
[2021-08-24 21:04] LABS: SARS-CoV-2 NAA Rapid Test Not Detected (NotDetected)
[2021-08-25 05:28] LABS: #Eosinphils 0.2 thou/uL (0.0-0.7); #Lymphocytes 1.8 thou/uL (1.20-3.40); #Monocytes 0.6 thou/uL (0.11-0.59); #Neutrophils 5.6 thou/uL (1.40-6.50); %Basophils 0.2 % (0.0-1.0); %Eosinophils 1.9 % (0.0-10.0); %Lymphocytes 22.2 % (21.0-51.0); %Monocytes 7.7 % (0.0-10.0); %Neutrophils 67.9 % (42.0-75.0); Hemoglobin 12.9 g/dL (14.0-18.0); Mean Corpuscular HGB CONC 33.4 g/dL (32.0-36.0); Mean Corpuscular Hemoglobin 32.6 pg (27.0-31.0); Mean Corpuscular Volume 97.6 fL (78.0-98.0); Mean Platelet Volume 7.7 fL (7.4-10.4); Platelet Count 132 thou/uL (130-400); RBC Distribution Width 12.9 % (11.5-14.5); Red Blood Cell (RBC) Count 3.94 mill/uL (4.70-6.10); White Blood Cell (WBC) Count 8.2 thou/uL (4.8-10.8)
[2021-08-25 05:31] LABS: Hemoglobin A1c 7.2 % (4.0-6.0)
[2021-08-25 05:48] LABS: Anion Gap 10 mmol/L (10-20); BUN (Urea Nitrogen) 33 mg/dL (8.4-25.7); Calc. Creatinine Clearance 56 mL/min (70-130); Calcium 8.2 mg/dL (7.8-10.44); Carbon Dioxide 21 mmol/L (23-31); Chloride 112 mmol/L (98-107); Glucose 90 mg/dL (83-110); Phosphorus 3.4 mg/dL (2.3-4.7); Potassium 4.8 mmol/L (3.5-5.1); Sodium 138 mmol/L (136-145)
[2021-08-25] MEDS: Sodium Chloride 0.9% 1,000 ML IV SCH (06:00)
[2021-08-25] MEDS: traMADol HCl 50 MG TAB PO SCH ×2 (06:00→18:20)
[2021-08-25] MEDS: Acetaminophen 500 MG TAB PO SCH ×4 (06:00→23:52)
[2021-08-25] MEDS ORDERED: fentaNYL Citrate/PF 100 MCG/2 ML SYRINGE ONE (07:12)
[2021-08-25] MEDS: Mometasone 200 MCG/Formoterol 5 MCG 120 PUFF INHALER INH SCH (07:18)
[2021-08-25] MEDS ORDERED: ceFAZolin (BATCH) 2 GM/100 ML BAG ONE (07:44)
[2021-08-25] MEDS ORDERED: Ondansetron PF 4 MG/2 ML Vial ONE (08:25)
[2021-08-25] MEDS ORDERED: ePHEDrine 50 MG/ML VIAL ONE (08:25)
[2021-08-25] MEDS ORDERED: PHENYLEPHRINE-NS 100 MCG/ML 10 ML SYRINGE ONE (08:25)
[2021-08-25] MEDS ORDERED: PROPOFOL 200 MG/20 ML VIAL ONE (08:25)
[2021-08-25] MEDS ORDERED: Rocuronium Bromide 10 MG/ML (10ML VIAL) ONE (08:25)
[2021-08-25] MEDS ORDERED: Lidocaine 1% PF 5 ML VIAL ONE (08:25)
[2021-08-25] MEDS ORDERED: SUGAMMADEX SODIUM 200 MG/2 ML VIAL ONE (09:24)
[2021-08-25] MEDS ORDERED: Ondansetron HCl/PF 4 MG/2 ML Vial IVP PRN (09:51)
[2021-08-25] MEDS ORDERED: Promethazine HCl 25 MG/ML VIAL IM PRN (09:51)
[2021-08-25] MEDS ORDERED: Promethazine HCl 25 MG/ML VIAL IVPB PRN (09:51)
[2021-08-25] MEDS: Metoprolol Tartrate 25 MG TAB PO SCH ×2 (12:08→21:41)
[2021-08-25] MEDS: Finasteride 5 MG TAB PO SCH (12:08)
[2021-08-25] MEDS: Lisinopril 2.5 MG TAB PO SCH (12:08)
[2021-08-25] MEDS: Polyethylene Glycol 3350 17 GM Packet PO SCH (12:08)
[2021-08-25] MEDS: Senokot S 8.6-50 MG TAB PO SCH ×2 (12:09→21:41)
[2021-08-25] MEDS: traMADol HCl 50 MG TAB PO PRN (14:22)
[2021-08-25] MEDS ORDERED: Dextrose 5% in Water 1,000 ML IV PRN (15:00)
[2021-08-25] MEDS ORDERED: Dextrose 50% Abboject 50 ML SYRINGE SLOW IVP PRN (15:00)
[2021-08-25] MEDS: ceFAZolin (BATCH) 2 GM in Premix Bag 1 BAG IVPB SCH ×2 (16:11→23:52)
[2021-08-25] MEDS: Insulin Regular 300 UNITS/3 ML VIAL SC PRN (18:43)
[2021-08-25] MEDS: Atorvastatin Calcium 10 MG TAB PO SCH (21:41)
[2021-08-25] MEDS: Tamsulosin HCl 0.4 MG CAP PO SCH (21:41)
[2021-08-25] MEDS: Famotidine 20 MG TAB PO SCH (21:41)
[2021-08-26] MEDS: traMADol HCl 50 MG TAB PO SCH (05:53)
[2021-08-26] MEDS: Acetaminophen 500 MG TAB PO SCH ×2 (05:54→11:55)
[2021-08-26 06:09] LABS: #Eosinphils 0.1 thou/uL (0.0-0.7); #Lymphocytes 1.4 thou/uL (1.20-3.40); #Monocytes 0.8 thou/uL (0.11-0.59); #Neutrophils 6.1 thou/uL (1.40-6.50); %Basophils 0.3 % (0.0-1.0); %Eosinophils 1.5 % (0.0-10.0); %Monocytes 9.8 % (0.0-10.0); %Neutrophils 72.5 % (42.0-75.0); Hemoglobin 11.8 g/dL (14.0-18.0); Mean Corpuscular HGB CONC 34.1 g/dL (32.0-36.0); Mean Corpuscular Hemoglobin 33.4 pg (27.0-31.0); Mean Corpuscular Volume 97.9 fL (78.0-98.0); Mean Platelet Volume 8.1 fL (7.4-10.4); Platelet Count 118 thou/uL (130-400); RBC Distribution Width 13.2 % (11.5-14.5); Red Blood Cell (RBC) Count 3.52 mill/uL (4.70-6.10); White Blood Cell (WBC) Count 8.5 thou/uL (4.8-10.8)
[2021-08-26 06:37] LABS: Anion Gap 12 mmol/L (10-20); BUN (Urea Nitrogen) 26 mg/dL (8.4-25.7); Calc. Creatinine Clearance 57 mL/min (70-130); Carbon Dioxide 20 mmol/L (23-31); Chloride 110 mmol/L (98-107); Glucose 136 mg/dL (83-110); Magnesium 1.9 mg/dL (1.6-2.6); Phosphorus 3.3 mg/dL (2.3-4.7); Potassium 4.8 mmol/L (3.5-5.1); Sodium 137 mmol/L (136-145)
[2021-08-26] MEDS: Mometasone 200 MCG/Formoterol 5 MCG 120 PUFF INHALER INH SCH (07:54)
[2021-08-26] MEDS: Aspirin 81 mg Enteric Coated Tablet PO SCH ×2 (08:33→21:01)
[2021-08-26] MEDS: Furosemide 40 MG TAB PO SCH (08:33)
[2021-08-26] MEDS: Finasteride 5 MG TAB PO SCH (08:33)
[2021-08-26] MEDS: Polyethylene Glycol 3350 17 GM Packet PO SCH (08:34)
[2021-08-26] MEDS: Metoprolol Tartrate 25 MG TAB PO SCH ×2 (08:34→21:02)
[2021-08-26] MEDS: Senokot S 8.6-50 MG TAB PO SCH ×2 (08:34→21:02)
[2021-08-26] MEDS: Lisinopril 2.5 MG TAB PO SCH (08:34)
[2021-08-26] MEDS: traMADol HCl 50 MG TAB PO PRN (10:15)
[2021-08-26] MEDS: Insulin Regular 300 UNITS/3 ML VIAL SC PRN ×2 (11:55→17:35)
[2021-08-26] MEDS: Acetaminophen/Codeine 30-300mg Tablet PO SCH ×2 (13:27→18:39)
[2021-08-26] MEDS: Famotidine 20 MG TAB PO SCH (21:03)
[2021-08-26] MEDS: Atorvastatin Calcium 10 MG TAB PO SCH (21:03)
[2021-08-26] MEDS: Tamsulosin HCl 0.4 MG CAP PO SCH (21:04)
[2021-08-27] MEDS: Acetaminophen/Codeine 30-300mg Tablet PO SCH ×4 (00:18→18:43)
[2021-08-27] MEDS: Mometasone 200 MCG/Formoterol 5 MCG 120 PUFF INHALER INH SCH (07:09)
[2021-08-27 07:14] LABS: Hemoglobin 11.6 g/dL (14.0-18.0)
[2021-08-27] MEDS: Finasteride 5 MG TAB PO SCH (08:29)
[2021-08-27] MEDS: Furosemide 40 MG TAB PO SCH (08:29)
[2021-08-27] MEDS: Lisinopril 2.5 MG TAB PO SCH (08:29)
[2021-08-27] MEDS: Metoprolol Tartrate 25 MG TAB PO SCH ×2 (08:29→20:47)
[2021-08-27] MEDS: Aspirin 81 mg Enteric Coated Tablet PO SCH ×2 (08:29→20:48)
[2021-08-27] MEDS: Polyethylene Glycol 3350 17 GM Packet PO SCH (08:29)
[2021-08-27] MEDS: Senokot S 8.6-50 MG TAB PO SCH ×2 (08:30→20:49)
[2021-08-27] MEDS: INSULIN GLARGINE SC SCH (11:19)
[2021-08-27] MEDS: LIXISENATIDE SC SCH (11:19)
[2021-08-27] MEDS: Insulin Regular 300 UNITS/3 ML VIAL SC PRN ×3 (12:23→21:20)
[2021-08-27] MEDS: Tamsulosin HCl 0.4 MG CAP PO SCH (20:48)
[2021-08-27] MEDS: Atorvastatin Calcium 10 MG TAB PO SCH (20:48)
[2021-08-27] MEDS: Famotidine 20 MG TAB PO SCH (20:48)
[2021-08-28] MEDS: Acetaminophen/Codeine 30-300mg Tablet PO SCH ×4 (00:02→18:41)
[2021-08-28] MEDS: Insulin Regular 300 UNITS/3 ML VIAL SC PRN ×3 (05:28→17:13)
[2021-08-28] MEDS: Mometasone 200 MCG/Formoterol 5 MCG 120 PUFF INHALER INH SCH (06:39)
[2021-08-28] MEDS: Lisinopril 2.5 MG TAB PO SCH (09:10)
[2021-08-28] MEDS: Finasteride 5 MG TAB PO SCH (09:10)
[2021-08-28] MEDS: Furosemide 40 MG TAB PO SCH (09:10)
[2021-08-28] MEDS: metFORMIN 500 MG TAB PO SCH (09:10)
[2021-08-28] MEDS: Metoprolol Tartrate 25 MG TAB PO SCH ×2 (09:11→21:31)
[2021-08-28] MEDS: Aspirin 81 mg Enteric Coated Tablet PO SCH ×2 (09:11→21:30)
[2021-08-28] MEDS: Senokot S 8.6-50 MG TAB PO SCH ×2 (09:11→21:35)
[2021-08-28] MEDS: Polyethylene Glycol 3350 17 GM Packet PO SCH (09:11)
[2021-08-28] MEDS: Tamsulosin HCl 0.4 MG CAP PO SCH (21:30)
[2021-08-28] MEDS: Atorvastatin Calcium 10 MG TAB PO SCH (21:30)
[2021-08-28] MEDS: Famotidine 20 MG TAB PO SCH (21:31)
[2021-08-29] MEDS: Acetaminophen/Codeine 30-300mg Tablet PO SCH ×3 (00:08→13:54)
[2021-08-29] MEDS: Insulin Regular 300 UNITS/3 ML VIAL SC PRN ×2 (06:12→12:33)
[2021-08-29] MEDS: Mometasone 200 MCG/Formoterol 5 MCG 120 PUFF INHALER INH SCH (06:59)
[2021-08-29] MEDS: Metoprolol Tartrate 25 MG TAB PO SCH (09:22)
[2021-08-29] MEDS: Aspirin 81 mg Enteric Coated Tablet PO SCH (09:22)
[2021-08-29] MEDS: Lisinopril 2.5 MG TAB PO SCH (09:22)
[2021-08-29] MEDS: metFORMIN 500 MG TAB PO SCH (09:22)
[2021-08-29] MEDS: Finasteride 5 MG TAB PO SCH (09:22)
[2021-08-29] MEDS: Senokot S 8.6-50 MG TAB PO SCH (09:22)
[2021-08-29] MEDS: Polyethylene Glycol 3350 17 GM Packet PO SCH (09:22)
[2021-08-29] MEDS: Furosemide 40 MG TAB PO SCH (09:22)
[2021-08-29 11:54] VITALS: BP 116/68; TEMP 97.4
== END 2021-08-29 15:05 | disposition swing bed (61) | DRG 522 ==
LOC: ERS 13:15 → SJJU 14:12
PROVIDERS: ADMIT Specialist; ATTEND Surgery
PROC: 0SRS0JA Replacement of Left Hip Joint, Femoral Surface with Synthetic Substitute, Uncemented, Open Approach (ICD-10-PCS; principal; 2021-08-25)
DX: S72.032A Displaced midcervical fracture of left femur, initial encounter for closed fracture (principal); N17.9 Acute kidney failure, unspecified; Z20.822 Contact with and (suspected) exposure to COVID-19; E78.5 Hyperlipidemia, unspecified; G89.29 Other chronic pain; M54.2 Cervicalgia; I25.10 Atherosclerotic heart disease of native coronary artery without angina pectoris; N18.9 Chronic kidney disease, unspecified; E11.22 Type 2 diabetes mellitus with diabetic chronic kidney disease; I12.9 Hypertensive chronic kidney disease with stage 1 through stage 4 chronic kidney disease, or unspecified chronic kidney disease; W18.39XA Other fall on same level, initial encounter; Z95.0 Presence of cardiac pacemaker; Z88.8 Allergy status to other drugs, medicaments and biological substances; Z79.899 Other long term (current) drug therapy; Z79.82 Long term (current) use of aspirin; Z79.84 Long term (current) use of oral hypoglycemic drugs; Z79.4 Long term (current) use of insulin; I25.2 Old myocardial infarction; Z98.890 Other specified postprocedural states; Z79.51 Long term (current) use of inhaled steroids
CPT/HCPCS: 36415; 36416; 71045; 72170; 80048; 80053; 83036; 83735; 83880; 84100; 84484; 85014; 85018; 85025; 85610; 85730; 86850; 86900; 86901; 93005; 96374; 96375; C1713; C1776; G0390; J0690; J1815; J2270; J2405; J2704; J3490; J7050; U0002

== ENCOUNTER 2022-07-08 09:28 | Observation (INO) | payer MEDICARE ==
[2022-07-08] MEDS ORDERED: Dextrose 50% Abboject 50 ML SYRINGE ONE ×2 (09:39→10:32)
[2022-07-08 10:43] LABS: #Basophils 0.1 thou/uL (0.0-0.2); #Eosinphils 0.1 thou/uL (0.0-0.7); #Lymphocytes 2.9 thou/uL (1.20-3.40); #Monocytes 0.8 thou/uL (0.11-0.59); #Neutrophils 4.8 thou/uL (1.40-6.50); %Basophils 0.9 % (0.0-1.0); %Eosinophils 0.8 % (0.0-10.0); %Lymphocytes 33.8 % (21.0-51.0); %Monocytes 9.2 % (0.0-10.0); %Neutrophils 55.3 % (42.0-75.0); Hemoglobin 14.6 g/dL (14.0-18.0); Mean Corpuscular HGB CONC 34.1 g/dL (32.0-36.0); Mean Corpuscular Volume 96.7 fl (78.0-98.0); Mean Platelet Volume 8.2 fL (7.4-10.4); Platelet Count 132 10x3/uL (130-400); RBC Distribution Width 12.7 % (11.5-14.5); Red Blood Cell (RBC) Count 4.42 mill/uL (4.70-6.10); White Blood Cell (WBC) Count 8.7 10x3/uL (4.8-10.8)
[2022-07-08 11:05] LABS: ALT (SGPT) 17 U/L (8-55); AST (SGOT) 17 U/L (5-34); Albumin 4.1 g/dL (3.4-4.8); Alkaline Phosphatase 78 U/L (40-110); Anion Gap 14 mmol/L (10-20); BUN (Urea Nitrogen) 27 mg/dL (8.4-25.7); Bilirubin, Total 0.5 mg/dL (0.2-1.2); Calc. Creatinine Clearance 0 mL/min (70-130); Calcium 8.8 mg/dL (7.8-10.44); Carbon Dioxide 21 mmol/L (23-31); Chloride 109 mmol/L (98-107); Estimated GFR 46; Globulin 3.4 g/dL (2.4-3.5); Potassium 4.2 mmol/L (3.5-5.1); Protein, Total 7.5 g/dL (5.8-8.1); Sodium 140 mmol/L (136-145)
[2022-07-08 11:17] LABS: Glucose 31 mg/dL (83-110)
[2022-07-08] MEDS ORDERED: Octreotide Acetate 500 MCG/ML VIAL ONE (11:29)
[2022-07-08 12:38] LABS: Bacteria/HPF 3+ HPF (None Seen); Bilirubin Negative (Negative); Blood, Urine Trace (Negative); Clarity Turbid (Clear); Glucose, Urine (Dipstick) Normal (Negative); Ketone, Urine Negative (Negative); Leukocyte 500 Leu/uL (Negative); Nitrite 2+ (Negative); Protein, Urine (Dipstick) 10 mg/dL (Neg-Trace); Specific Gravity, Urine 1.012 (1.002-1.036); Squamous Epithelial 0-3 HPF (0-3); Urobilinogen Normal mg/dL (Less than 2); WBC/HPF Greater than 50 HPF (0-3); pH, Urine 6.5 (5.0-9.0)
[2022-07-08] MEDS ORDERED: cefTRIAXone (ROCEPHIN) 1 GM VIAL ONE (13:00)
[2022-07-08] MEDS ORDERED: Acetaminophen 325 MG TAB PO PRN (13:19)
[2022-07-08] MEDS ORDERED: Ondansetron PF 4 MG/2 ML Vial IVP PRN (13:19)
[2022-07-08] MEDS ORDERED: Ondansetron ODT 4 MG TAB PO PRN (13:19)
[2022-07-08] MEDS ORDERED: Dextrose 50% Abboject 50 ML SYRINGE SLOW IVP PRN (13:19)
[2022-07-08] MEDS ORDERED: Dextrose 5% in Water 1,000 ML IV PRN (13:19)
[2022-07-08 16:31] VITALS: BMI 27.8
[2022-07-08] MEDS ORDERED: HumaLOG 300 UNITS/3 ML VIAL SC PRN (18:24)
[2022-07-08] MEDS ORDERED: Sodium Chloride 0.9% 1,000 ML IV SCH (18:30)
[2022-07-08] MEDS: Heparin 5,000 UNITS/ML VIAL SC SCH ×2 (18:33→20:59)
[2022-07-09 04:31] LABS: #Eosinphils 0.1 thou/uL (0.0-0.7); #Lymphocytes 2.1 thou/uL (1.20-3.40); #Monocytes 0.5 thou/uL (0.11-0.59); #Neutrophils 4.9 thou/uL (1.40-6.50); %Basophils 0.2 % (0.0-1.0); %Lymphocytes 27.3 % (21.0-51.0); %Monocytes 6.6 % (0.0-10.0); %Neutrophils 64.9 % (42.0-75.0); Hemoglobin 12.8 g/dL (14.0-18.0); Mean Corpuscular HGB CONC 33.5 g/dL (32.0-36.0); Mean Corpuscular Hemoglobin 32.6 pg (27.0-31.0); Mean Corpuscular Volume 97.4 fl (78.0-98.0); Mean Platelet Volume 8.6 fL (7.4-10.4); Platelet Count 120 10x3/uL (130-400); RBC Distribution Width 12.6 % (11.5-14.5); Red Blood Cell (RBC) Count 3.93 mill/uL (4.70-6.10); White Blood Cell (WBC) Count 7.6 10x3/uL (4.8-10.8)
[2022-07-09 05:15] LABS: Anion Gap 11 mmol/L (10-20); BUN (Urea Nitrogen) 20 mg/dL (8.4-25.7); Calc. Creatinine Clearance 60 mL/min (70-130); Calcium 8.3 mg/dL (7.8-10.44); Carbon Dioxide 19 mmol/L (23-31); Chloride 110 mmol/L (98-107); Estimated GFR 59; Glucose 112 mg/dL (83-110); Potassium 4.8 mmol/L (3.5-5.1); Sodium 135 mmol/L (136-145)
[2022-07-09] MEDS ORDERED: Polyethylene Glycol 3350 17 GM Packet PO PRN (10:26)
[2022-07-09 11:36] VITALS: BP 180/80; TEMP 98.6
[2022-07-09] MEDS: Heparin 5,000 UNITS/ML VIAL SC SCH (11:36)
[2022-07-09] MEDS ORDERED: cefTRIAXone\\ROCEPHIN 1 GM in Sodium Chloride 0.9% 100 ML IVPB SCH (13:00)
[2022-07-09] MEDS ORDERED: Famotidine 20 MG TAB PO SCH (21:00)
[2022-07-09] MEDS ORDERED: Atorvastatin Calcium 10 MG TAB PO SCH (21:00)
[2022-07-10] MEDS ORDERED: metFORMIN 500 MG TAB PO SCH (08:00)
[2022-07-10] MEDS ORDERED: Finasteride 5 MG TAB PO SCH (09:00)
[2022-07-10] MEDS ORDERED: Tamsulosin HCl 0.4 MG CAP PO SCH (09:00)
== END 2022-07-09 12:22 | disposition home or self-care (01) ==
LOC: ERS 09:28 → 2NO 13:19
PROVIDERS: ADMIT Internal Medicine; ATTEND Internal Medicine
DX: E11.649 Type 2 diabetes mellitus with hypoglycemia without coma (principal); N39.0 Urinary tract infection, site not specified; B96.20 Unspecified Escherichia coli [E. coli] as the cause of diseases classified elsewhere; I13.10 Hypertensive heart and chronic kidney disease without heart failure, with stage 1 through stage 4 chronic kidney disease, or unspecified chronic kidney disease; E11.22 Type 2 diabetes mellitus with diabetic chronic kidney disease; N18.30 Chronic kidney disease, stage 3 unspecified; I25.10 Atherosclerotic heart disease of native coronary artery without angina pectoris; I47.20 Ventricular tachycardia, unspecified; I48.91 Unspecified atrial fibrillation; E78.5 Hyperlipidemia, unspecified; G89.29 Other chronic pain; M54.2 Cervicalgia; N40.0 Benign prostatic hyperplasia without lower urinary tract symptoms; Z87.891 Personal history of nicotine dependence; Z79.4 Long term (current) use of insulin; Z79.84 Long term (current) use of oral hypoglycemic drugs; Z79.899 Other long term (current) drug therapy; Z88.8 Allergy status to other drugs, medicaments and biological substances; Z95.810 Presence of automatic (implantable) cardiac defibrillator
CPT/HCPCS: 71045; 80048; 80053; 82550; 82962 ×2; 83690; 84484; 85025 ×2; 87077; 87086; 87186; 93005; 96365; 96372; 96375; 96376; 99285; G0378 ×3; 36415; 36416; 81003; 81015; J0696; J1644; J2354; J7050; J7999

== ENCOUNTER 2023-05-14 18:12 | Inpatient (IN) | payer MEDICARE ==
[2023-05-14] MEDS ORDERED: Piperacillin/Tazobactam 4.5 GM VIAL ONE (18:57)
[2023-05-14] MEDS ORDERED: Sodium Chloride 0.9% 100 ML ONE (18:57)
[2023-05-14] MEDS ORDERED: Vancomycin 1 GM/200 ML (FROZEN) BAG ONE (18:57)
[2023-05-14 19:28] LABS: #Monocytes 0.9 thou/uL (0.11-0.59); #Neutrophils 8.5 thou/uL (1.40-6.50); %Basophils 0.1 % (0.0-1.0); %Eosinophils 0.3 % (0.0-10.0); %Lymphocytes 11.5 % (21.0-51.0); %Monocytes 8.5 % (0.0-10.0); %Neutrophils 79.4 % (42.0-75.0); Hematocrit 30.3 % (42.0-52.0); Hemoglobin 9.7 g/dL (14.0-18.0); Mean Corpuscular Hemoglobin 31.2 pg (27.0-31.0); Mean Corpuscular Volume 97.4 fl (78.0-98.0); Mean Platelet Volume 10.6 fL (7.4-10.4); Platelet Count 223 10x3/uL (130-400); RBC Distribution Width 14.1 % (11.5-14.5); Red Blood Cell (RBC) Count 3.11 mill/uL (4.70-6.10); White Blood Cell (WBC) Count 10.7 10x3/uL (4.8-10.8)
[2023-05-14 19:51] LABS: ALT (SGPT) 89 U/L (8-55); AST (SGOT) 110 U/L (5-34); Albumin 3.6 g/dL (3.4-4.8); Alkaline Phosphatase 171 U/L (40-110); Anion Gap 16 mmol/L (10-20); BUN (Urea Nitrogen) 59 mg/dL (8.4-25.7); Bilirubin, Total 0.4 mg/dL (0.2-1.2); Calc. Creatinine Clearance 0 mL/min (70-130); Calcium 8.6 mg/dL (7.8-10.44); Carbon Dioxide 19 mmol/L (23-31); Chloride 108 mmol/L (98-107); Estimated GFR 23; Globulin 3.6 g/dL (2.4-3.5); Glucose 311 mg/dL (83-110); Protein, Total 7.2 g/dL (5.8-8.1); Sodium 136 mmol/L (136-145)
[2023-05-14 19:59] LABS: Critical Call Chem Troponin I NUR.AC11 @2000; Critical Call Chemistry NUR.AC11 @2000; Potassium 6.5 mmol/L (3.5-5.1); Troponin I 0.237 ng/mL (< 0.028)
[2023-05-14] MEDS ORDERED: CALCIUM GLUC 1 GM (50 ML) BAG ONE (20:20)
[2023-05-14] MEDS ORDERED: Furosemide 40 MG (4 mL) VIAL ONE (20:20)
[2023-05-14] MEDS ORDERED: Insulin Regular 300 UNITS/3 ML VIAL ONE (20:21)
[2023-05-14 21:42] LABS: Actual Bicarbonate (HCO3v) 17.1 mEq/L (22-28); Base Excess -8.2 mEq/L (-2.0 to +3.0); Calcium, Ionized (venous) 1.11 mmol/L (1.16-1.32); Chloride (VBG) 108 mmol/L (98-106); Hematocrit-VBG 32 % (42.0-52.0); Hemoglobin (Hb) 10.8 g/dL (12.6-17.4); Sodium 136 mmol/L (133-146); pH (venous) 7.315 (7.32-7.43)
[2023-05-14 21:45] LABS: Potassium (VBG) 6.05 mmol/L (3.70-5.30)
[2023-05-14] MEDS ORDERED: HYDROcodone/Acetaminophen 5/325 mg Tablet PO PRN ×2 (22:34)
[2023-05-14] MEDS ORDERED: Acetaminophen 325 MG TAB PO PRN (22:34)
[2023-05-14] MEDS ORDERED: Acetaminophen 650 MG Suppository PR PRN (22:34)
[2023-05-14] MEDS ORDERED: Glucagon 1 MG/ML KIT IM PRN (22:52)
[2023-05-14] MEDS ORDERED: Dextrose 5% in Water 1,000 ML IV PRN (22:52)
[2023-05-14] MEDS ORDERED: Dextrose 50% Abboject 50 ML SYRINGE SLOW IVP PRN (22:52)
[2023-05-14 23:59] LABS: Critical Call Chem Troponin I RESULT DECREASING; Troponin I 0.227 ng/mL (< 0.028)
[2023-05-15] MEDS: Sodium Polystyrene Sulfonate 15 GM (60 mL) BOT PO SCH (01:07)
[2023-05-15 01:10] LABS: Troponin I 0.258 ng/mL (< 0.028)
[2023-05-15] MEDS ORDERED: Vancomycin Dose by Levels Sliding Scale (Wt 71-99) FS SCH (01:30)
[2023-05-15] MEDS: Vancomycin 1 GM in Premix 1 BAG IVPB SCH (02:52)
[2023-05-15] MEDS: Cefepime 1 GM in Sodium Chloride 0.9% 100 ML IVPB SCH (02:59)
[2023-05-15] MEDS: Furosemide 40 MG (4 mL) VIAL SLOW IVP SCH (05:31)
[2023-05-15 05:48] LABS: #Eosinphils 0.1 thou/uL (0.0-0.7); #Monocytes 0.9 thou/uL (0.11-0.59); #Neutrophils 8.2 thou/uL (1.40-6.50); %Basophils 0.1 % (0.0-1.0); %Eosinophils 0.5 % (0.0-10.0); %Lymphocytes 12.7 % (21.0-51.0); %Monocytes 8.2 % (0.0-10.0); %Neutrophils 78.2 % (42.0-75.0); Hemoglobin 9.4 g/dL (14.0-18.0); Mean Corpuscular HGB CONC 32.4 g/dL (32.0-36.0); Mean Corpuscular Hemoglobin 31.4 pg (27.0-31.0); Mean Platelet Volume 10.3 fL (7.4-10.4); Platelet Count 211 10x3/uL (130-400); RBC Distribution Width 14.1 % (11.5-14.5); Red Blood Cell (RBC) Count 2.99 mill/uL (4.70-6.10); White Blood Cell (WBC) Count 10.5 10x3/uL (4.8-10.8)
[2023-05-15 05:58] LABS: Hemoglobin A1c 7.6 % (4.0-6.0)
[2023-05-15 06:12] LABS: Phosphorus 3.5 mg/dL (2.3-4.7)
[2023-05-15 06:15] LABS: Anion Gap 13 mmol/L (10-20); BUN (Urea Nitrogen) 62 mg/dL (8.4-25.7); Calc. Creatinine Clearance 29 mL/min (70-130); Calcium 8.6 mg/dL (7.8-10.44); Carbon Dioxide 23 mmol/L (23-31); Chloride 108 mmol/L (98-107); Estimated GFR 24; Glucose 166 mg/dL (83-110); Potassium 5.2 mmol/L (3.5-5.1); Sodium 139 mmol/L (136-145)
[2023-05-15 06:16] LABS: CRP (Inflammatory) 14.35 mg/dL (= or < 0.5)
[2023-05-15] MEDS: HumaLOG 300 UNITS/3 ML VIAL SC PRN (06:35)
[2023-05-15] MEDS ORDERED: INSULIN GLARGINE SC SCH (09:00)
[2023-05-15] MEDS ORDERED: LIXISENATIDE SC SCH (09:00)
[2023-05-15] MEDS ORDERED: Vancomycin 1 GM in Sodium Chloride 0.9% 250 ML 250 ML IVPB SCH (09:00)
[2023-05-15] MEDS: Insulin Glargine 30 UNITS/0.3 ML VIAL SC SCH (09:23)
[2023-05-15] MEDS: Heparin 5,000 UNITS/ML VIAL SC SCH ×2 (09:23→20:24)
[2023-05-15] MEDS: Tamsulosin HCl 0.4 MG CAP PO SCH (09:23)
[2023-05-15] MEDS: Finasteride 5 MG TAB PO SCH (09:23)
[2023-05-15] MEDS: Atorvastatin Calcium 10 MG TAB PO SCH (09:23)
[2023-05-15] MEDS: LIXISENATIDE SC SCH (10:31)
[2023-05-15] MEDS: INSULIN GLARGINE SC SCH (10:31)
[2023-05-15] MEDS: Insulin Regular 300 UNITS/3 ML VIAL IVP SCH (17:27)
[2023-05-15] MEDS: Dextrose 50% Abboject 50 ML SYRINGE SLOW IVP SCH (17:28)
[2023-05-15 18:16] LABS: Vancomycin, Random 15.7 ug/mL (See Comment)
[2023-05-15] MEDS: Vancomycin HCl 500 MG in Sodium Chloride 0.9% 100 ML IV SCH (20:23)
[2023-05-15] MEDS: Famotidine 20 MG TAB PO SCH (20:24)
[2023-05-15 20:55] LABS: Anion Gap 15 mmol/L (10-20); BUN (Urea Nitrogen) 68 mg/dL (8.4-25.7); Calc. Creatinine Clearance 29 mL/min (70-130); Calcium 8.2 mg/dL (7.8-10.44); Carbon Dioxide 18 mmol/L (23-31); Chloride 110 mmol/L (98-107); Estimated GFR 23; Glucose 146 mg/dL (83-110); Potassium 4.9 mmol/L (3.5-5.1); Sodium 138 mmol/L (136-145)
[2023-05-15] MEDS ORDERED: fentaNYL 50 mcg/mL 1 mL Vial SLOW IVP PRN (23:01)
[2023-05-15] MEDS: Melatonin 3 MG TAB PO PRN (23:43)
[2023-05-16 09:45] VITALS: BMI 29.5
[2023-05-16 17:59] LABS: Vancomycin, Random 13.7 ug/mL (See Comment)
[2023-05-16] MEDS: Vancomycin HCl 750 MG in Sodium Chloride 0.9% 250 ML 250 ML IVPB SCH (22:28)
[2023-05-17 04:56] LABS: #Eosinphils 0.1 thou/uL (0.0-0.7); #Monocytes 0.7 thou/uL (0.11-0.59); #Neutrophils 5.6 thou/uL (1.40-6.50); %Basophils 0.1 % (0.0-1.0); %Eosinophils 0.9 % (0.0-10.0); %Monocytes 9.3 % (0.0-10.0); %Neutrophils 75.4 % (42.0-75.0); Hematocrit 32.7 % (42.0-52.0); Hemoglobin 10.1 g/dL (14.0-18.0); Mean Corpuscular HGB CONC 30.9 g/dL (32.0-36.0); Mean Corpuscular Hemoglobin 30.4 pg (27.0-31.0); Mean Corpuscular Volume 98.5 fl (78.0-98.0); Platelet Count 212 10x3/uL (130-400); RBC Distribution Width 14.4 % (11.5-14.5); Red Blood Cell (RBC) Count 3.32 mill/uL (4.70-6.10); White Blood Cell (WBC) Count 7.4 10x3/uL (4.8-10.8)
[2023-05-17 05:19] LABS: Anion Gap 12 mmol/L (10-20); BUN (Urea Nitrogen) 69 mg/dL (8.4-25.7); Calc. Creatinine Clearance 33 mL/min (70-130); Calcium 8.5 mg/dL (7.8-10.44); Carbon Dioxide 21 mmol/L (23-31); Chloride 111 mmol/L (98-107); Estimated GFR 27; Glucose 220 mg/dL (83-110); Potassium 4.2 mmol/L (3.5-5.1); Sodium 140 mmol/L (136-145)
[2023-05-17 20:42] LABS: Vancomycin, Random 15.1 ug/mL (See Comment)
[2023-05-17 21:42] VITALS: TEMP 97
[2023-05-18 00:07] VITALS: BP 129/67
[2023-05-18] MEDS: Vancomycin HCl 750 MG in Sodium Chloride 0.9% 250 ML 250 ML IVPB SCH (00:08)
[2023-05-18 02:41] LABS: #Eosinphils 0.1 thou/uL (0.0-0.7); #Monocytes 0.6 thou/uL (0.11-0.59); #Neutrophils 5.8 thou/uL (1.40-6.50); %Basophils 0.1 % (0.0-1.0); %Eosinophils 0.8 % (0.0-10.0); %Lymphocytes 11.6 % (21.0-51.0); %Monocytes 7.8 % (0.0-10.0); %Neutrophils 79.2 % (42.0-75.0); Hematocrit 32.3 % (42.0-52.0); Hemoglobin 10.3 g/dL (14.0-18.0); Mean Corpuscular HGB CONC 31.9 g/dL (32.0-36.0); Mean Corpuscular Hemoglobin 31.4 pg (27.0-31.0); Mean Corpuscular Volume 98.5 fl (78.0-98.0); Mean Platelet Volume 10.4 fL (7.4-10.4); Platelet Count 204 10x3/uL (130-400); RBC Distribution Width 14.2 % (11.5-14.5); Red Blood Cell (RBC) Count 3.28 mill/uL (4.70-6.10); White Blood Cell (WBC) Count 7.4 10x3/uL (4.8-10.8)
[2023-05-18 02:42] LABS: Base Excess -5.5 mEq/L (-2.0 to +3.0); Calcium, Ionized (venous) 1.16 mmol/L (1.16-1.32); Chloride (VBG) 109 mmol/L (98-106); Hematocrit-VBG 33 % (42.0-52.0); Hemoglobin (Hb) 11.1 g/dL (12.6-17.4); Potassium (VBG) 4.23 mmol/L (3.70-5.30); Sodium 141 mmol/L (133-146); pH (venous) 7.284 (7.32-7.43)
[2023-05-18] MEDS: Ipratropium/Albuterol 3 ML NEB NEB PRN (02:52)
[2023-05-18 03:02] LABS: Anion Gap 11 mmol/L (10-20); BUN (Urea Nitrogen) 66 mg/dL (8.4-25.7); Calc. Creatinine Clearance 35 mL/min (70-130); Calcium 8.7 mg/dL (7.8-10.44); Carbon Dioxide 24 mmol/L (23-31); Chloride 110 mmol/L (98-107); Estimated GFR 29; Glucose 188 mg/dL (83-110); Potassium 4.3 mmol/L (3.5-5.1); Sodium 141 mmol/L (136-145)
[2023-05-18] MEDS: Furosemide 20 MG (2 mL) VIAL SLOW IVP SCH (04:21)
[2023-05-18] MEDS ORDERED: Sodium Bicarb 50 MEQ/50 ML Abboject 8.4% SYRINGE ONE (07:03)
[2023-05-18] MEDS ORDERED: EPINEPHrine 1 MG/10 ML Abboject SYRINGE ONE (07:03)
[2023-05-18] MEDS ORDERED: Calcium Chloride 1 GM/10 ML Abboject SYRINGE ONE (07:03)
[2023-05-18] MEDS ORDERED: FLU VACC QS2023(65UP)/MF59C/PF 60 MCG/0.5 ML SYRINGE IM ONE (09:00)
== END 2023-05-18 10:20 | disposition expired ==
LOC: SUATTDRO 18:12 → ERS 18:12 → 2NO 22:19
PROVIDERS: ADMIT Family Medicine; ATTEND Internal Medicine
PROC: 3E03329 Introduction of Other Anti-infective into Peripheral Vein, Percutaneous Approach (ICD-10-PCS; 2023-05-14)
PROC: 5A12012 Performance of Cardiac Output, Single, Manual (ICD-10-PCS; principal; 2023-05-18)
DX: I13.0 Hypertensive heart and chronic kidney disease with heart failure and stage 1 through stage 4 chronic kidney disease, or unspecified chronic kidney disease (principal); I21.A1 Myocardial infarction type 2; I50.23 Acute on chronic systolic (congestive) heart failure; L03.116 Cellulitis of left lower limb; N17.9 Acute kidney failure, unspecified; E87.20 Acidosis, unspecified; I42.8 Other cardiomyopathies; E78.5 Hyperlipidemia, unspecified; E87.5 Hyperkalemia; I25.10 Atherosclerotic heart disease of native coronary artery without angina pectoris; E11.22 Type 2 diabetes mellitus with diabetic chronic kidney disease; I46.9 Cardiac arrest, cause unspecified; N18.30 Chronic kidney disease, stage 3 unspecified; E87.70 Fluid overload, unspecified; N40.0 Benign prostatic hyperplasia without lower urinary tract symptoms; I25.5 Ischemic cardiomyopathy; Z95.0 Presence of cardiac pacemaker; Z98.890 Other specified postprocedural states; Z79.899 Other long term (current) drug therapy; Z79.4 Long term (current) use of insulin; Z88.8 Allergy status to other drugs, medicaments and biological substances
CPT/HCPCS: 36415; 36416; 71045; 80048; 80053; 80202; 82805; 83036; 83605; 83735; 83880; 84100; 84443; 84484; 85025; 86140; 87040; 87070; 87077; 87186; 87205; 93005; 93306; 94640; 96365; 96375; 97139; J0171; J0613; J0692; J1644; J1815; J1940; J2543; J3370; J3370-JW; J3490; J7050; J7620; J7999